=== PATIENT | male | born 1970 | race Caucasian/White ===

== ENCOUNTER 2018-05-11 15:27 | Inpatient (IN) ==
[2018-05-11] MEDS ORDERED: Vancomycin Inj 1 GM/200 ML PIGGYBACK IV.SIG ONE (19:14)
--- NOTE | 2018-05-11 19:23 | ED ---
HPI General Chief complaint: Wound/Laceration Stated complaint: Right Foot Toe Complaint Time Seen by Provider: 05/11/18 19:02 Source: patient Mode of arrival: ambulatory Limitations: no limitations History of Present Illness HPI narrative: This is a 47-year-old male with history of hypertension and diabetes presents emergency department for evaluation of a wound to his right second toe. Patient states 5 days ago he stubbed his toe. It was he had noticed that he broke the skin on the end of it and he put a Band-Aid and Neosporin on it. He reports when he took off the Band-Aid today he noticed a brown yellow drainage and a swollen red toe. 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 He denies any fever chills. He denies any nausea, vomiting, diarrhea. He has no other symptoms to report. Related Data Home Medications Medication Instructions Recorded Confirmed Actos 15 mg PO BID 05/11/18 05/11/18 gabapentin 800 mg PO BID 05/11/18 05/11/18 metformin 1,000 mg PO BID 05/11/18 05/11/18 Allergies Allergy/AdvReac Type Severity Reaction Status Date / Time penicillin G Allergy Intermediate Hives Verified 05/11/18 17:15 Sulfa (Sulfonamide Allergy Mild Hives Verified 05/11/18 17:15 Antibiotics) Review of Systems Except as stated in HPI: all other systems reviewed are negative [facility] Medical History Medical History CHF (congestive heart failure) (Acute) Diabetes (Acute) Peripheral neuropathy (Acute) Surgical History Surgical History No history of previous surgery (Acute) Social History Social History Substance History: No History of Abuse Second Hand Smoke Exposure: No Smoking Status: Never smoker How Often Do You Have a Drink Containing Alcohol: Never Recent Travel in [facility] within the Last 8 Weeks: No Recent Out of Country Travel within the Last 8 Weeks: No Immunization History Tetanus Immunization: >5 Years Hx Influenza Vaccine This Season: No Exam Narrative Exam Narrative: GENERAL: Well-nourished male patient, no acute distress SKIN: Focused skin assessment warm/dry. The right second toe is sausagelike and erythematous. There is a 1-1/2 cm in diameter wound on the distal tip with a brown purulent drainage. HEAD: Atraumatic. Normocephalic. EYES: Pupils equal and round. No scleral icterus. No injection or drainage. ENT: No nasal bleeding or discharge. Mucous membranes pink and moist. NECK: Trachea midline. No JVD. CARDIOVASCULAR: Regular rate and rhythm. No murmur appreciated. RESPIRATORY: No accessory muscle use. Clear to auscultation. Breath sounds equal bilaterally. GASTROINTESTINAL: Abdomen soft, non-tender, nondistended. Hepatic and splenic margins not palpable. MUSCULOSKELETAL: No obvious deformities. No clubbing. No cyanosis. No edema. NEUROLOGICAL: Awake and alert. No obvious cranial nerve deficits. Motor grossly within normal limits. Normal speech. PSYCHIATRIC: Appropriate mood and affect; insight and judgment normal. Course Initial Documented Vital Signs Temperature 99.7 F H 05/11/18 15:30 Pulse Rate 99 H 05/11/18 15:30 Respiratory Rate 18 05/11/18 15:30 Blood Pressure 201/91 H 05/11/18 15:30 Pulse Oximetry 99 05/11/18 15:30 Last Documented Vital Signs Temperature 99.7 F H 05/11/18 15:30 Pulse Rate 99 H 05/11/18 15:30 Respiratory Rate 18 05/11/18 15:30 Blood Pressure 201/91 H 05/11/18 15:30 Pulse Oximetry 99 05/11/18 15:30 Medical Decision Making RUBEN Attestation RUBEN supervised visit: Yes [facility] Narrative Medical decision making narrative: 47-year-old male presents emergency department for evaluation of an injury sustained to his right second toe that he believes has become infected. Patient appears well. He is hypertensive this is here in the emergency department. He has a slightly elevated heart rate in the grade temperature. The right second toe is sausagelike, erythematous, with a wound that is draining in the distal aspect. Cultures obtained. X-ray imaging shows soft tissue edema but no definite bone involvement. Sed rate is elevated at 51, so after discussion with my attending physician, we decided to move forward with MRI of the foot. Patient was also given IV vancomycin. MRI findings are concerning for possible early osteomyelitis. [facility] for IV antibiotics, podiatry consult. Plan is discussed with the patient. He is in agreement with this plan of care. Differential Diagnosis Differential Diagnosis: Infected wound versus cellulitis versus osteomyelitis versus foreign body Medical Records Medical records reviewed: Yes I reviewed the patient's medical records. Lab Data Lab results reviewed: Yes I reviewed the patient's lab results. Result diagrams: 05/11/18 18:55 05/11/18 18:55 Lab Results 05/11/18 05/11/18 05/11/18 Range/Units 18:55 18:55 18:55 WBC 6.4 (4.0-11.0) th/mm3 RBC 4.12 L (4.50-5.90) mil/mm3 Hgb 11.2 L (13.0-17.0) gm/dL Hct 33.7 L (39.0-51.0) % MCV 81.9 (80.0-100.0) fL MCH 27.2 (27.0-34.0) pg MCHC 33.2 (32.0-36.0) % RDW 13.6 (11.6-17.2) % Plt Count 256 (150-450) th/mm3 MPV 8.0 (7.0-11.0) fL Neut % (Auto) 72.5 H (16.0-70.0) % Lymph % (Auto) 15.3 (9.0-44.0) % [place] % (Auto) 10.5 H (0.0-8.0) % Eos % (Auto) 1.4 (0.0-4.0) % Baso % (Auto) 0.3 (0.0-2.0) % Neut # (Auto) 4.6 (1.8-7.7) th/mm3 Lymph # (Auto) 1.0 (1.0-4.8) th/mm3 [place] # (Auto) 0.7 (0.0-0.9) th/mm3 Eos # (Auto) 0.1 (0.0-0.4) th/mm3 Baso # (Auto) 0.0 (0.0-0.2) th/mm3 WBC Differential . Differential Comment Auto diff final ESR 51 H (0-15) mm/hr Sodium 144 (136-145) meq/L Potassium 4.9 (3.5-5.1) meq/L Chloride 111 H (98-107) meq/L Carbon Dioxide 21.5 (21.0-32.0) meq/L Anion Gap 12 (5-15) meq/L BUN 34 H (7-18) mg/dL Creatinine 2.09 H (0.60-1.30) mg/dL Estimated GFR 34 L (>89) mL/min Random Glucose 172 H (74-106) mg/dL Calcium 9.3 (8.5-10.1) mg/dL Imaging Data Radiologist's impression: ITS Impressions Toe X-Ray 05/11/18 19:14 CONCLUSION: No acute bony abnormality identified. Soft tissue swelling at the second toe. No radiopaque foreign body. Foot MRI 05/11/18 21:31 CONCLUSION: 1. Marrow edema distal phalanx of the second toe, possibly an early osteomyelitis although difficult to confirm marrow enhancement postcontrast. There is some subcutaneous edema in the forefoot. Discharge Plan Discharge Disposition Patient Disposition: 30 Still Patient Discharge Condition Condition: Stable Discharge Details Discharge Problem: Osteomyelitis of toe of right foot Physicians Team ED Provider: Obinna Velazquez ED Midlevel Provider: Aria Aguilar Primary Care Provider: UNKNOWN, Rxs /Orders / Referrals /Forms Prescriptions: No Action gabapentin 800 mg Tablet 800 mg PO BID RF: 0 metformin 1,000 mg Tablet 1,000 mg PO BID RF: 0 Actos 15 mg PO BID RF: 0 Status ED Status: Medically Cleared
--- NOTE | 2018-05-11 20:11 | XR ---
EXAM DATE: 05/11/2018 8:06 PM EDT AGE/SEX: 47 years / Male INDICATIONS: Ulcer with swelling and redness to 2nd toe, history of diabetes. CLINICAL DATA: This is the patient's initial encounter. Patient reports that signs and symptoms have been present for 3 days and indicates a pain score of 9/10. MEDICAL/SURGICAL HISTORY: Diabetes mellitus type II. None. COMPARISON: No prior exams available for comparison. FINDINGS: Bony structures are intact and in normal alignment. Joints are intact without dislocation or signifi cant arthropathy. Osseous density is normal. Soft tissues are swollen right second toe. No radiopaq ue foreign bodies seen. CONCLUSION: No acute bony abnormality identified. Soft tissue swelling at the second toe. No radiopaque foreign b alvino. Electronically signed by: Nazario Meredith MD 05/11/2018 8:09 PM EDT
[2018-05-11 20:40] LABS: Baso % (Auto) 0.3 % (0.0-2.0); Eos # (Auto) 0.1 th/mm3 (0.0-0.4); Eos % (Auto) 1.4 % (0.0-4.0); Hematocrit 33.7 % (39.0-51.0); Hemoglobin 11.2 gm/dL (13.0-17.0); Lymph % (Auto) 15.3 % (9.0-44.0); Mean Corpuscular HGB Conc 33.2 % (32.0-36.0); Mean Corpuscular Hemoglobin 27.2 pg (27.0-34.0); Mean Corpuscular Volume 81.9 fL (80.0-100.0); Mono # (Auto) 0.7 th/mm3 (0.0-0.9); Mono % (Auto) 10.5 % (0.0-8.0); Neut # (Auto) 4.6 th/mm3 (1.8-7.7); Neut % (Auto) 72.5 % (16.0-70.0); Platelet Count 256 th/mm3 (150-450); Red Blood Count 4.12 mil/mm3 (4.50-5.90); Red Cell Distribution Width 13.6 % (11.6-17.2); White Blood Count 6.4 th/mm3 (4.0-11.0)
[2018-05-11 21:05] LABS: Calcium 9.3 mg/dL (8.5-10.1); Carbon Dioxide 21.5 meq/L (21.0-32.0); Potassium 4.9 meq/L (3.5-5.1)
[2018-05-11] MEDS ORDERED: Vancomycin Inj 1,000 MG in Sodium Chlor 0.9% Inj 250 ML IV.SIG ONE (22:00)
[2018-05-11] MEDS ORDERED: Gadobenate Dimeglumine PF Inj 529 MG/ML 5 ML VIAL (for RAD MRI) IVCONTRAST ONE (22:12)
--- NOTE | 2018-05-11 22:44 | MR ---
EXAM DATE: 05/11/2018 10:31 PM EDT AGE/SEX: 47 years / Male INDICATIONS: Osteomyelitis. Right foot, second toe tip. CLINICAL DATA: This is the patient's initial encounter. Patient reports that signs and symptoms have been present for 1 week and indicates a pain score of 5/10. MEDICAL/SURGICAL HISTORY: Diabetes mellitus type II. . Finger sx. COMPARISON: No prior exams available for comparison. TECHNIQUE: Multiplanar, multisequence MRI examination was performed without contrast and after th e intravenous administration of 20 ml Multihance (gadobenate) single exam dose. FINDINGS: There is some marrow edema in the distal phalanx of the second toe, probably an early osteomyelitis a lthough postcontrast images do not reveal significant enhancement at this time. No other marrow signa l abnormalities are identified. No abnormal fluid collections. There are edematous changes in the for efoot especially on the dorsum of the foot. No other acute bony abnormality. CONCLUSION: 1. Marrow edema distal phalanx of the second toe, possibly an early osteomyelitis although difficult to confirm marrow enhancement postcontrast. There is some subcutaneous edema in the forefoot. Electronically signed by: Nazario Meredith MD 05/11/2018 10:43 PM EDT
[2018-05-12] MEDS ORDERED: Dextrose 50% in Water 50 ML Vial IV.PUSH PRN (00:58)
[2018-05-12] MEDS ORDERED: Temazepam 15 MG Capsule PO PRN (01:00)
[2018-05-12] MEDS ORDERED: Vancomycin Consult Pharmacy 1 EACH OTHER SCH (01:00)
[2018-05-12] MEDS ORDERED: Bisacodyl 10 MG Supp RECTAL PRN (01:00)
[2018-05-12] MEDS: Sod Chloride 0.9% Inj 1,000 ML IV.CONT SCH ×3 (01:52→22:35)
[2018-05-12] MEDS: Aztreonam Inj 2 GM in Sodium Chloride 0.9% Inj 100 ML IV.SIG SCH ×2 (02:33→14:47)
--- NOTE | 2018-05-12 03:09 | P.HPIM ---
History of Present Illness Primary Care Physician: UNKNOWN Chief Complaint: swelling History of Present Illness: 47-year-old male with a history of diabetes, diabetic peripheral neuropathy who presents to the ER with 3 week history of right second toe pain and swelling. Patient reports over the past 3 days however pus has been emanating from toe. Patient reports pain is sharp, constant, radiates throughout his whole foot. Otherwise says he is feeling all right. Denies any fevers, chest pain, shortness of breath, nausea, vomiting. He has not taken antibiotics for this yet. Patient denies any history of heart disease. Denies any chest pain with exertion. - Inpatient Certification If this patient has been admitted as an Inpatient: I certify that the inpatient services were ordered in accordance with Medicare regulations governing the order. This includes certification that hospital inpatient services are reasonable and necessary and in the case of services not specified as inpatient-only under 42 CFR 419.22(n), that they are appropriately provided as inpatient services in accordance to with the 2-midnight benchmark under 43 CFR 412.3(e) Estimated Total Length of Stay (Days): 3 Plans for Post Hospital Care: Home Review of Systems All other systems reviewed negative except as stated in HPI PMFSH - History History Provided By: Patient - Medical History Medical History: Medical History (Last Reviewed 05/12/18 @ 00:21 by ZIA Martinez) CHF (congestive heart failure) Diabetes Peripheral neuropathy - Surgical History Surgical History: Surgical History (Last Reviewed 05/12/18 @ 00:21 by ZIA Martinez) No history of previous surgery - Family History Family History: Family History (Last Updated 05/12/18 @ 03:05 by Malcom Garcia MD) Mother Heart disease - Tobacco History Second Hand Smoke Exposure: No Smoking Status: Never smoker - Alcohol History How Often Do You Have a Drink Containing Alcohol: Never - Substance Use History Substance History: No History of Abuse - Travel History Recent Travel in the [place] Within the Last 8 Weeks: No Recent Travel Out of the Country Within the Last 8 Weeks: No - Immunization History Tetanus Immunization: >5 Years Hx Influenza Vaccine This Season: No Medications and Allergies Active Medications: Active Medications Al Hydroxide/Mg Hydroxide (Milk Of Magnesia Liq) 30 ml PO Q12H PRN PRN Reason: Mild Constipation Bisacodyl (Dulcolax Supp) 10 mg RECTAL DAILY PRN PRN Reason: SEVERE CONSITIPATION Dextrose (D50w Vial) 50 ml IV.PUSH UNSCH PRN PRN Reason: PER HYPOGLYCEMIA PROTOCOL Gabapentin (Neurontin) 800 mg PO TID [facility] Glucagon (Glucagon Inj) 1 mg OTHER PRN PRN PRN Reason: for Hypoglycemia Protocol Aztreonam 2 gm/ Sodium (Chloride) 100 mls @ 200 mls/hr IV.SIG Q12H [facility] Last Admin: 05/12/18 02:33 Dose: 200 mls/hr Pharmacy Profile Note (Vancomycin Consult Pharmacy) 0 mls @ 0 mls/hr OTHER UNSCH [facility] Sodium Chloride (Ns Inj) 1,000 mls @ 100 mls/hr IV.CONT .Q10H [facility] Last Admin: 05/12/18 01:52 Dose: 100 mls/hr Insulin Aspart (Novolog Insulin Suppl Scale Inj) 0 unit SQ ACHS [facility]; Protocol Lactulose (Lactulose Liq) 30 ml PO DAILY PRN PRN Reason: SEVERE CONSITIPATION Sennosides (Senokot) 17.2 mg PO Q12H PRN PRN Reason: Moderate Constipation Temazepam (Restoril) 15 mg PO HS PRN PRN Reason: INSOMNIA Allergies Allergy/AdvReac Type Severity Reaction Status Date / Time penicillin G Allergy Intermediate Hives Verified 05/11/18 17:15 Sulfa (Sulfonamide Allergy Mild Hives Verified 05/11/18 17:15 Antibiotics) Home Medications Medication Instructions Recorded Confirmed Type Actos 15 mg PO BID 05/11/18 05/11/18 History gabapentin 800 mg PO BID 05/11/18 05/11/18 History metformin 1,000 mg PO BID 05/11/18 05/11/18 History Exam Vital signs: Vital Signs 05/11/18 15:30 Temperature 99.7 F H Pulse Rate 99 H Respiratory Rate 18 Blood Pressure 201/91 H Pulse Oximetry 99 Intake & Output 05/11/18 05/11/18 05/12/18 06:59 18:59 06:59 Intake Total 250 / 250 Balance 250 / 250 Weight 105.233 kg Intake: IV 250 / 250 Vancomycin Inj 1,000 MG In NS 250 / 250 Inj 250 ML @ 250 mls/hr IV.SIG ONCE ONE Rx#:[id number] Narrative: GENERAL: Patient sitting up in bed. Appears comfortable. Alert and oriented 3. SKIN: Warm and dry. HEAD: Atraumatic. Normocephalic. EYES: Pupils equal and round. No scleral icterus. No injection or drainage. ENT: No nasal bleeding or discharge. Mucous membranes pink and moist. NECK: Trachea midline. No JVD. CARDIOVASCULAR: Regular rate and rhythm. RESPIRATORY: No accessory muscle use. Clear to auscultation. Breath sounds equal bilaterally. GASTROINTESTINAL: Abdomen soft, non-tender, nondistended. Hepatic and splenic margins not palpable. MUSCULOSKELETAL: Extremities without clubbing, cyanosis, or edema. Patient has marketed swelling of right second toe, with erythema, pus under the nail. Very good pedal pulses bilaterally. NEUROLOGICAL: Awake and alert. No obvious cranial nerve deficits. Motor grossly within normal limits. Five out of 5 muscle strength in the arms and legs. Normal speech. PSYCHIATRIC: Appropriate mood and affect; insight and judgment normal. Results - Labs CBC & Chem 7: 05/11/18 18:55 05/11/18 18:55 Labs: Short CBC 05/11/18 Range/Units 18:55 WBC 6.4 (4.0-11.0) th/mm3 Hgb 11.2 L (13.0-17.0) gm/dL Hct 33.7 L (39.0-51.0) % Plt Count 256 (150-450) th/mm3 BMP 05/11/18 18:55 Sodium 144 Potassium 4.9 Chloride 111 H Carbon Dioxide 21.5 BUN 34 H Creatinine 2.09 H Calcium 9.3 - Imaging Impressions Toe X-Ray 05/11/18 19:14 CONCLUSION: No acute bony abnormality identified. Soft tissue swelling at the second toe. No radiopaque foreign body. Foot MRI 05/11/18 21:31 CONCLUSION: 1. Marrow edema distal phalanx of the second toe, possibly an early osteomyelitis although difficult to confirm marrow enhancement postcontrast. There is some subcutaneous edema in the forefoot. Caprini VTE Risk Assessment Caprini VTE Risk Assessment: No/Low Risk (score <= 1) Caprini Risk Assessment Model: Point Value = 1 Point Value = 2 Point Value = 3 Point Value = 5 Age 41-60 Minor surgery BMI > 25 kg/m2 Swollen legs Varicose veins or History of unexplained or recurrent spontaneous Oral contraceptives or hormone replacement Sepsis (< 1 month) Serious lung disease, including pneumonia (< 1 month) Abnormal pulmonary function Acute myocardial infarction Congestive heart failure (< 1 month) History of inflammatory bowel disease Medical patient at bed rest Age 61-74 Arthroscopic surgery Major open surgery (> 45 min) Laparoscopic surgery (> 45 min) Malignancy Confined to bed (> 72 hours) Immobilizing plaster cast Central venous access Age >= 75 History of VTE Family history of VTE Factor V Leiden Prothrombin [id number] Lupus anticoagulant Anticardiolipin antibodies Elevated serum homocysteine Heparin-induced thrombocytopenia Other congenital or acquired thrombophilia Stroke (< 1 month) Elective arthroplasty Hip, pelvis, or leg fracture Acute spinal cord injury (< 1 month) Prophylaxis Regimen: Total Risk Factor Score Risk Level Prophylaxis Regimen 0-1 Low Early ambulation 2 Moderate Order ONE of the following: *Sequential Compression Device (SCD) *Heparin 5000 units SQ BID 3-4 Higher Order ONE of the following medications: *Heparin 5000 units SQ TID *Enoxaparin/Lovenox 40 mg SQ daily (WT < 150 kg, CrCl > 30 mL/min) *Enoxaparin/Lovenox 30 mg SQ daily (WT < 150 kg, CrCl > 10-29 mL/min) *Enoxaparin/Lovenox 30 mg SQ BID (WT < 150 kg, CrCl > 30 mL/min) AND/OR *Sequential Compression Device (SCD) 5 or more Highest Order ONE of the following medications: *Heparin 5000 units SQ TID (Preferred with Epidurals) *Enoxaparin/Lovenox 40 mg SQ daily (WT < 150 kg, CrCl > 30 mL/min) *Enoxaparin/Lovenox 30 mg SQ daily (WT < 150 kg, CrCl > 10-29 mL/min) *Enoxaparin/Lovenox 30 mg SQ BID (WT < 150 kg, CrCl > 30 mL/min) AND *Sequential Compression Device (SCD) Assessment and Plan - Plan //Diabetic foot wound with osteomyelitis of right 2nd toe //Acute osteomyelitis of right first toe As seen on MRI Broad-spectrum antibiotics. Patient with penicillin allergy. Will use aztreonam and vancomycin. Consult to podiatry. Appreciate assistance //CKD stage IV. = Creatinine baseline 1.7 in 2016. Creatinine here 2.1. Uncertain recent baseline. Will continue on IV fluids and monitor. //Diabetes mellitus. N.p.o. for surgery. Insulin sliding scale. Hold home meds. //Chronic diabetic peripheral neuropathy. Continue gabapentin 800 mg 3 times daily Discussed Condition With: Patient, nurse, patient's aunt at bedside, ED physician
[2018-05-12] MEDS ORDERED: Gabapentin 400 MG Capsule PO SCH (09:00)
[2018-05-12] MEDS: Insulin NovoLOG Aspart Correctional Sugar Inj SQ SCH ×4 (09:56→22:34)
[2018-05-12] MEDS: Gabapentin 400 MG Capsule PO SCH ×3 (09:57→19:08)
--- NOTE | 2018-05-12 12:04 | P.PNIM ---
Subjective Interval history: Patient states pain is controlled well reports some mild sharp stabbing pain Physical Exam Vital signs: Vital Signs 05/11/18 15:30 05/12/18 01:01 05/12/18 03:22 Temperature 99.7 F H Pulse Rate 99 H 84 Respiratory Rate 18 17 16 Blood Pressure 201/91 H 144/67 H Pulse Oximetry 99 97 05/12/18 08:00 Temperature 98.3 F Pulse Rate 83 Respiratory Rate 19 Blood Pressure 153/81 H Pulse Oximetry 95 Intake & Output 05/11/18 05/12/18 05/12/18 18:59 06:59 18:59 Intake Total 350 / 350 Balance 350 / 350 Weight 105.233 kg Intake: IV 350 / 350 Azactam Inj 2 GM In NS Inj 100 100 / 100 ML @ 200 mls/hr IV.SIG Q12H [facility] Rx#:[id number] Vancomycin Inj 1,000 MG In NS 250 / 250 Inj 250 ML @ 250 mls/hr IV.SIG ONCE ONE Rx#:[id number] Narrative: GENERAL: This is a well-nourished, well-developed patient, in no apparent distress. CARDIOVASCULAR: Regular rate and rhythm without murmurs, gallops, or rubs. RESPIRATORY: Clear to auscultation. Breath sounds equal bilaterally. No wheezes , rales, or rhonchi. GASTROINTESTINAL: Abdomen soft, non-tender, nondistended. Normal active bowel sounds MUSCULOSKELETAL: Second toe swollen with excoriating erythematous changes no active discharge seen. NEURO: Alert & Oriented x4 to person, place, time, situation. Moves all ext x4 Results - Labs CBC & Chem 7: 05/11/18 18:55 05/11/18 18:55 Laboratory Results - last 24 hr 05/11/18 05/11/18 05/11/18 18:55 18:55 18:55 WBC 6.4 RBC 4.12 L Hgb 11.2 L Hct 33.7 L MCV 81.9 MCH 27.2 MCHC 33.2 RDW 13.6 Plt Count 256 MPV 8.0 Neut % (Auto) 72.5 H Lymph % (Auto) 15.3 [place] % (Auto) 10.5 H Eos % (Auto) 1.4 Baso % (Auto) 0.3 Neut # (Auto) 4.6 Lymph # (Auto) 1.0 [place] # (Auto) 0.7 Eos # (Auto) 0.1 Baso # (Auto) 0.0 WBC Differential . Differential Comment Auto diff final ESR 51 H Sodium 144 Potassium 4.9 Chloride 111 H Carbon Dioxide 21.5 Anion Gap 12 BUN 34 H Creatinine 2.09 H Estimated GFR 34 L POC Glucose Random Glucose 172 H Calcium 9.3 05/12/18 09:56 WBC RBC Hgb Hct MCV MCH MCHC RDW Plt Count MPV Neut % (Auto) Lymph % (Auto) [place] % (Auto) Eos % (Auto) Baso % (Auto) Neut # (Auto) Lymph # (Auto) [place] # (Auto) Eos # (Auto) Baso # (Auto) WBC Differential Differential Comment ESR Sodium Potassium Chloride Carbon Dioxide Anion Gap BUN Creatinine Estimated GFR POC Glucose 122 H Random Glucose Calcium Microbiology 05/11/18 20:20 Abscess - Foot Gram Stain - Final - Imaging Impressions Toe X-Ray 05/11/18 19:14 CONCLUSION: No acute bony abnormality identified. Soft tissue swelling at the second toe. No radiopaque foreign body. Foot MRI 05/11/18 21:31 CONCLUSION: 1. Marrow edema distal phalanx of the second toe, possibly an early osteomyelitis although difficult to confirm marrow enhancement postcontrast. There is some subcutaneous edema in the forefoot. Assessment and Plan - Plan 1. Infected diabetic foot wound with osteomyelitis of right 2nd toe //Acute osteomyelitis of right second toe As seen on MRI Broad-spectrum antibiotics. Patient with penicillin allergy. Will use aztreonam and vancomycin. Consult to podiatry. Appreciate assistance Due to osteomyelitis will consult infectious disease for further evaluation. 2. Acute kidney injury superimposed on CKD stage IV. = Creatinine baseline 1.7 in 2016. Creatinine here 2.1. Uncertain recent baseline. Will continue on IV fluids and monitor. 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 N.p.o. for surgery. Insulin sliding scale. Hold home meds. Not a good candidate for metformin due to chronic kidney disease. 4. Chronic diabetic peripheral neuropathy. Continue gabapentin 800 mg 3 times daily, gabapentin dosing needs to be decreased due to chronic kidney disease. 5. DVT prophylaxisNo mechanical or pharmaceutical VTE prophalaxis administered due to patient's low risk assessment of VTE. Encouraged ambulation.
[2018-05-12] MEDS ORDERED: Naloxone Inj 0.4 MG/ML Vial IV.PUSH PRN (12:06)
--- NOTE | 2018-05-12 16:12 | P.CONID ---
History of Present Illness Service: Infectious disease Consult date: 05/12/18 Requesting Physician: [place] Reason for Consult: Evaluate patient with osteomyelitis of the right second toe Primary Care Provider: UNKNOWN Chief Complaint: swelling History of Present Illness: Patient seen and examined. Records reviewed. Patient is a 47-year-old male, with diabetes, presented to the hospital complaining of pain redness and swelling on his right second toe. Patient stated that he had noticed a callus on his right second toe for the last several months. About 2-3 weeks ago he had part of the callus, and since then he has had some open wound on that second toe. He was doing his own wound care and according to the patient it looks like it might be healing. However on May 08 he noted some purulent drainage coming out of that wound. He was doing his own care for the wound, and the following day when he woke up he noticed that his second toe was red and swollen. It progressively worsened so he presented to the hospital for further evaluation and treatment. He denies any fever chills or sweats. He has not had any respiratory, GI or any urinary complaints. Since admission his temperature has been low-grade. His sed rate is 51. MRI of the foot is showing suggestion of osteomyelitis of the distal phalanx. Infectious disease consultation has been requested to evaluate the patient. Review of Systems Constitutional: Denies chills, Denies fever(s), Denies night sweats Eyes: Denies discharge, Denies pain Ears, Nose, Mouth, and Throat: Denies facial pain, Denies hoarseness, Denies mouth pain, Denies neck pain, Denies sore throat Cardiovascular: Denies chest pain, Denies shortness of breath Gastrointestinal: Denies abdominal pain, Denies loose stools, Denies nausea, Denies pain with swallowing, Denies vomiting Genitourinary: Denies painful urination, Denies urinary frequency, Denies urinary hesitancy Musculoskeletal: Reports joint pain, Reports joint swelling, Reports tingling Skin/Breast: Denies rash Neurologic: Reports tingling/numbness/burning sensations, Denies localized weakness PMFSH - History History Provided By: Patient - Medical History Medical History: Medical History (Last Reviewed 05/12/18 @ 16:07 by Angela Burgess MD) CHF (congestive heart failure) (Acute) Diabetes Peripheral neuropathy - Surgical History Surgical History: Surgical History (Last Reviewed 05/12/18 @ 16:07 by Angela Burgess MD) No history of previous surgery - Family History Family History: Family History (Last Reviewed 05/12/18 @ 16:07 by Angela Burgess MD) Mother Heart disease - Tobacco History Second Hand Smoke Exposure: No Smoking Status: Never smoker - Alcohol History How Often Do You Have a Drink Containing Alcohol: Monthly or less - Substance Use History Substance History: No History of Abuse - Travel History Recent Travel in the [place] Within the Last 8 Weeks: No Recent Travel Out of the Country Within the Last 8 Weeks: No - Immunization History Tetanus Immunization: >5 Years Hx Influenza Vaccine This Season: No Medications and Allergies Active Medications: Active Medications Acetaminophen (Tylenol) 650 mg PO Q6HR PRN PRN Reason: PAIN SCALE 1 TO 2 Hydrocodone Bitart/Acetaminophen ([place] 5/325) 1 tab PO Q4H PRN PRN Reason: Pain Scale 3 To 10 Al Hydroxide/Mg Hydroxide (Milk Of [place]herbie Liq) 30 ml PO Q12H PRN PRN Reason: Mild Constipation Bisacodyl (Dulcolax Supp) 10 mg RECTAL DAILY PRN PRN Reason: SEVERE CONSITIPATION Dextrose (D50w Vial) 50 ml IV.PUSH UNSCH PRN PRN Reason: PER HYPOGLYCEMIA PROTOCOL Gabapentin (Neurontin) 800 mg PO TID [facility] Last Admin: 05/12/18 14:47 Dose: 800 mg Glucagon (Glucagon Inj) 1 mg OTHER PRN PRN PRN Reason: for Hypoglycemia Protocol Aztreonam 2 gm/ Sodium (Chloride) 100 mls @ 200 mls/hr IV.SIG Q12H [facility] Last Admin: 05/12/18 14:47 Dose: 200 mls/hr Pharmacy Profile Note (Vancomycin Consult Pharmacy) 0 mls @ 0 mls/hr OTHER UNSCH [facility] Sodium Chloride (Ns Inj) 1,000 mls @ 100 mls/hr IV.CONT .Q10H [facility] Last Admin: 05/12/18 14:41 Dose: 100 mls/hr Vancomycin HCl 1,500 mg/ (Sodium Chloride) 515 mls @ 250 mls/hr IV.SIG Q24H [facility] Insulin Aspart (Novolog Insulin Suppl Scale Inj) 0 unit SQ ACHS [facility]; Protocol Last Admin: 05/12/18 14:59 Dose: Not Given Lactulose (Lactulose Liq) 30 ml PO DAILY PRN PRN Reason: SEVERE CONSITIPATION Miscellaneous Information ([facility] Ordered Lab Info) 1 each OTHER ONCE ONE Stop: 05/14/18 15:46 Naloxone HCl (Narcan Inj) 0.4 mg IV.PUSH UNSCH PRN PRN Reason: SEE LABEL COMMENTS Sennosides (Senokot) 17.2 mg PO Q12H PRN PRN Reason: Moderate Constipation Temazepam (Restoril) 15 mg PO HS PRN PRN Reason: INSOMNIA Allergies Allergy/AdvReac Type Severity Reaction Status Date / Time penicillin G Allergy Intermediate Hives Verified 05/11/18 17:15 Sulfa (Sulfonamide Allergy Mild Hives Verified 05/11/18 17:15 Antibiotics) Home Medications Medication Instructions Recorded Confirmed Type Actos 15 mg PO BID 05/11/18 05/11/18 History gabapentin 800 mg PO QID 05/11/18 05/12/18 History metformin 1,000 mg PO BID 05/11/18 05/11/18 History Exam Vital signs: Vital Signs 05/12/18 01:01 05/12/18 03:22 05/12/18 08:00 Temperature 98.3 F Pulse Rate 84 83 Respiratory Rate 17 16 19 Blood Pressure 144/67 H 153/81 H Pulse Oximetry 97 95 05/12/18 12:00 Temperature 97.4 F L Pulse Rate 79 Respiratory Rate 18 Blood Pressure 143/85 H Pulse Oximetry 96 Intake & Output 05/11/18 05/12/18 05/12/18 18:59 06:59 18:59 Intake Total 350 / 350 1000 / 1000 Balance 350 / 350 1000 / 1000 Weight 105.233 kg Intake: IV 350 / 350 1000 / 1000 NS Inj 1,000 ML @ 100 mls/hr IV 1000 / 1000 .CONT .Q10H [facility] Rx#:[id number] Azactam Inj 2 GM In NS Inj 100 100 / 100 ML @ 200 mls/hr IV.SIG Q12H [facility] Rx#:[id number] Vancomycin Inj 1,000 MG In NS 250 / 250 Inj 250 ML @ 250 mls/hr IV.SIG ONCE ONE Rx#:[id number] Narrative: Physicaql Examination GENERAL: Patient is a well-nourished, well-developed male, awake and alert, not in respiratory distress. SKIN: Cool and dry. No generalized rash, no ecchymoses and no evidence of embolic lesions. HEAD: Atraumatic. Normocephalic. No temporal wasting, or tenderness. EYES: [place] conjunctiva. No petechia or hemorrhage. Pupils equal, round and reactive to light. Extraocular movements full and intact. No scleral icterus. No injection or drainage. EARS, NOSE AND THROAT: Nose without bleeding or purulent nasal discharge. No sinus tenderness. Mucous membranes pink and moist. No oral lesions noted. No exudate. No oral thrush. NECK: Trachea midline. Supple and not tender, no meningeal signs CARDIOVASCULAR: Regular rate and rhythm. No murmurs, rubs or gallops heard RESPIRATORY: Clear to auscultation. Breath sounds equal bilaterally. No rales , wheezing or rhonchi ABDOMEN: Soft, non-tender, nondistended. Bowel sounds present and normoactive. No guarding. No rebound. No organomegaly. EXTREMITIES: No clubbing, cyanosis, or edema. R foot - second toe is red and swollen and at the tip, there is callus noted and an open wound, small with some purulent drainage. No redness noted on dorsum of his R foot, no lymphangitis seen. No calf tenderness. Good pulses both feet NEUROLOGICAL: Awake and alert. Cranial nerves grossly intact. Motor grossly within normal limits. PSYCHIATRIC: Seems to have depressed affect, calm and cooperative. LINE: No evidence of infection Results - Labs CBC & Chem 7: 05/11/18 18:55 05/11/18 18:55 Labs: Laboratory Results - last 24 hr 05/11/1818 05/11/18 18:55 18:55 18:55 WBC 6.4 RBC 4.12 L Hgb 11.2 L Hct 33.7 L MCV 81.9 MCH 27.2 MCHC 33.2 RDW 13.6 Plt Count 256 MPV 8.0 Neut % (Auto) 72.5 H Lymph % (Auto) 15.3 Miller % (Auto) 10.5 H Eos % (Auto) 1.4 Baso % (Auto) 0.3 Neut # (Auto) 4.6 Lymph # (Auto) 1.0 Miller # (Auto) 0.7 Eos # (Auto) 0.1 Baso # (Auto) 0.0 WBC Differential . Differential Comment Auto diff final ESR 51 H Sodium 144 Potassium 4.9 Chloride 111 H Carbon Dioxide 21.5 Anion Gap 12 BUN 34 H Creatinine 2.09 H Estimated GFR 34 L POC Glucose Random Glucose 172 H Calcium 9.3 05/12/18 05/12/18 09:56 14:48 WBC RBC Hgb Hct MCV MCH MCHC RDW Plt Count MPV Neut % (Auto) Lymph % (Auto) Miller % (Auto) Eos % (Auto) Baso % (Auto) Neut # (Auto) Lymph # (Auto) Miller # (Auto) Eos # (Auto) Baso # (Auto) WBC Differential Differential Comment ESR Sodium Potassium Chloride Carbon Dioxide Anion Gap BUN Creatinine Estimated GFR POC Glucose 122 H 115 H Random Glucose Calcium - Imaging Toe X-Ray 05/11/18 19:14 CONCLUSION: No acute bony abnormality identified. Soft tissue swelling at the second toe. No radiopaque foreign body. Foot MRI 05/11/18 21:31 CONCLUSION: 1. Marrow edema distal phalanx of the second toe, possibly an early osteomyelitis although difficult to confirm marrow enhancement postcontrast. There is some subcutaneous edema in the forefoot. Assessment and Plan - Plan Impression Cellulitis R second toe with wound, possibly with ostemyelitis DM Renal insufficiency, ?baseline, possibly due to infection Possible sepsis due to foot infection Recommendation Follow C/S Podiatry to evaluate Continue Azactam Continue Vanco - will dose depending on levels Follow creatinine Monitor progress I will determine course of Abx depending on work-up results and intervention done by podiatry I will follow along with you Thank you for this consultation
[2018-05-12] MEDS: Vancomycin Inj 1,500 MG in Sodium Chlor 0.9% Inj 500 ML IV.SIG SCH (17:53)
--- NOTE | 2018-05-12 18:29 | P.CONPOD ---
History of Present Illness Service: Foot and ankle surgery/podiatry Consult date: 05/12/18 Reason for Consult: Right second toe infection Primary Care Provider: UNKNOWN Chief Complaint: swelling History of Present Illness: Podiatry consulted for this 47-year-old male with history of diabetes, diabetic peripheral neuropathy who presented to the ED with a 3 week history of right second toe pain and swelling. Patient states over the past 72 hours there has been pus from the right second toe. He states he poured hydrogen peroxide on it and ever since then it has become more painful, edematous, and erythematous. Denies any fevers nausea vomiting chills. Review of Systems All other systems reviewed negative except as stated in HPI Constitutional: Denies chills, Denies fever(s), Denies headache(s), Denies night sweats Eyes: Denies blind spots, Denies blurry vision Ears, Nose, Mouth, and Throat: Denies abnormal hearing Cardiovascular: Denies chest pain Respiratory: Denies chest congestion, Denies cough, Denies shortness of breath Gastrointestinal: Denies abdominal pain Musculoskeletal: Denies joint pain, Denies muscle cramps, Denies muscle weakness PMFSH - History History Provided By: Patient - Medical History Medical History: Medical History (Last Reviewed 05/12/18 @ 18:23 by Lakisha Mcconnell DPM) CHF (congestive heart failure) (Acute) Diabetes Peripheral neuropathy - Surgical History Surgical History: Surgical History (Last Reviewed 05/12/18 @ 18:23 by Lakisha Mcconnell DPM) No history of previous surgery - Family History Family History: Family History (Last Reviewed 05/12/18 @ 18:23 by Lakisha Mcconnell DPM) Mother Heart disease - Tobacco History Second Hand Smoke Exposure: No Smoking Status: Never smoker - Alcohol History How Often Do You Have a Drink Containing Alcohol: Monthly or less - Substance Use History Substance History: No History of Abuse - Travel History Recent Travel in the [place] Within the Last 8 Weeks: No Recent Travel Out of the Country Within the Last 8 Weeks: No - Immunization History Tetanus Immunization: >5 Years Hx Influenza Vaccine This Season: No Medications and Allergies Active Medications: Active Medications Acetaminophen (Tylenol) 650 mg PO Q6HR PRN PRN Reason: PAIN SCALE 1 TO 2 Hydrocodone Bitart/Acetaminophen ([place] 5/325) 1 tab PO Q4H PRN PRN Reason: Pain Scale 3 To 10 Al Hydroxide/Mg Hydroxide (Milk Of Magnesia Liq) 30 ml PO Q12H PRN PRN Reason: Mild Constipation Bisacodyl (Dulcolax Supp) 10 mg RECTAL DAILY PRN PRN Reason: SEVERE CONSITIPATION Dextrose (D50w Vial) 50 ml IV.PUSH UNSCH PRN PRN Reason: PER HYPOGLYCEMIA PROTOCOL Gabapentin (Neurontin) 800 mg PO TID [facility] Last Admin: 05/12/18 14:47 Dose: 800 mg Glucagon (Glucagon Inj) 1 mg OTHER PRN PRN PRN Reason: for Hypoglycemia Protocol Aztreonam 2 gm/ Sodium (Chloride) 100 mls @ 200 mls/hr IV.SIG Q12H [facility] Last Admin: 05/12/18 14:47 Dose: 200 mls/hr Pharmacy Profile Note (Vancomycin Consult Pharmacy) 0 mls @ 0 mls/hr OTHER UNSCH [facility] Sodium Chloride (Ns Inj) 1,000 mls @ 100 mls/hr IV.CONT .Q10H [facility] Last Admin: 05/12/18 14:41 Dose: 100 mls/hr Vancomycin HCl 1,500 mg/ (Sodium Chloride) 515 mls @ 250 mls/hr IV.SIG Q24H [facility] Last Admin: 05/12/18 17:53 Dose: 250 mls/hr Insulin Aspart (Novolog Insulin Suppl Scale Inj) 0 unit SQ ACHS [facility]; Protocol Last Admin: 05/12/18 17:56 Dose: Not Given Lactulose (Lactulose Liq) 30 ml PO DAILY PRN PRN Reason: SEVERE CONSITIPATION Miscellaneous Information ([facility] Ordered Lab Info) 1 each OTHER ONCE ONE Stop: 05/14/18 15:46 Naloxone HCl (Narcan Inj) 0.4 mg IV.PUSH UNSCH PRN PRN Reason: SEE LABEL COMMENTS Sennosides (Senokot) 17.2 mg PO Q12H PRN PRN Reason: Moderate Constipation Temazepam (Restoril) 15 mg PO HS PRN PRN Reason: INSOMNIA Allergies Allergy/AdvReac Type Severity Reaction Status Date / Time penicillin G Allergy Intermediate Hives Verified 05/11/18 17:15 Sulfa (Sulfonamide Allergy Mild Hives Verified 05/11/18 17:15 Antibiotics) Home Medications Medication Instructions Recorded Confirmed Type Actos 15 mg PO BID 05/11/18 05/11/18 History gabapentin 800 mg PO QID 05/11/18 05/12/18 History metformin 1,000 mg PO BID 05/11/18 05/11/18 History Physical Exam Vital signs: Vital Signs 05/12/18 01:01 05/12/18 03:22 05/12/18 08:00 Temperature 98.3 F Pulse Rate 84 83 Respiratory Rate 17 16 19 Blood Pressure 144/67 H 153/81 H Pulse Oximetry 97 95 05/12/18 12:00 05/12/18 16:00 Temperature 97.4 F L 98.4 F Pulse Rate 79 80 Respiratory Rate 18 19 Blood Pressure 143/85 H 170/83 H Pulse Oximetry 96 97 Intake & Output 05/11/18 05/12/18 05/12/18 18:59 06:59 18:59 Intake Total 350 / 350 1999 / 1999 Balance 350 / 350 1999 / 1999 Weight 105.233 kg Intake: IV 350 / 350 1000 / 1000 NS Inj 1,000 ML @ 100 mls/hr IV 1000 / 1000 .CONT .Q10H [facility] Rx#:[id number] Azactam Inj 2 GM In NS Inj 100 100 / 100 ML @ 200 mls/hr IV.SIG Q12H [facility] Rx#:[id number] Vancomycin Inj 1,000 MG In NS 250 / 250 Inj 250 ML @ 250 mls/hr IV.SIG ONCE ONE Rx#:[id number] Other 1000 / 1000 Narrative: GENERAL: This is a well-nourished, well-developed patient, in no apparent distress. SKIN: Ulceration noted to distal tip of right second digit HEAD: Atraumatic. EYES: Pupils equal round and reactive. ENT: Airway patent. NECK: Trachea midline. RESPIRATORY: Nonlabored breathing. MUSCULOSKELETAL:. Negative Homans sign bilaterally. NEUROLOGICAL: Awake and alert. Normal speech. Lower extremity physical exam: Vascular: Dorsalis pedis 2/4, posterior tibial 2/4. Capillary refill time within normal limits to digits X5 bilateral foot. Edema present right second digit Neuro: Gross sensation intact to bilateral lower extremity. Pinpoint sensation decreased. No hyperalgesia noted to bilateral lower extremity Dermatology: Increased erythema, edema and temperature noted to right second digit with distal tip ulceration with purulent drainage. Hyperkeratotic borders noted to ulceration site. Noted probe to capsule. Acute signs of infection present Musculoskeletal: Tender to palpation to right second digit. Results - Labs CBC & Chem 7: 05/11/18 18:55 05/11/18 18:55 Laboratory Results - last 24 hr 05/11/18 05/11/18 05/11/18 18:55 18:55 18:55 WBC 6.4 RBC 4.12 L Hgb 11.2 L Hct 33.7 L MCV 81.9 MCH 27.2 MCHC 33.2 RDW 13.6 Plt Count 256 MPV 8.0 Neut % (Auto) 72.5 H Lymph % (Auto) 15.3 [place] % (Auto) 10.5 H Eos % (Auto) 1.4 Baso % (Auto) 0.3 Neut # (Auto) 4.6 Lymph # (Auto) 1.0 [place] # (Auto) 0.7 Eos # (Auto) 0.1 Baso # (Auto) 0.0 WBC Differential . Differential Comment Auto diff final ESR 51 H Sodium 144 Potassium 4.9 Chloride 111 H Carbon Dioxide 21.5 Anion Gap 12 BUN 34 H Creatinine 2.09 H Estimated GFR 34 L POC Glucose Random Glucose 172 H Calcium 9.3 05/12/18 05/12/18 05/12/18 09:56 14:48 17:13 WBC RBC Hgb Hct MCV MCH MCHC RDW Plt Count MPV Neut % (Auto) Lymph % (Auto) [place] % (Auto) Eos % (Auto) Baso % (Auto) Neut # (Auto) Lymph # (Auto) [place] # (Auto) Eos # (Auto) Baso # (Auto) WBC Differential Differential Comment ESR Sodium Potassium Chloride Carbon Dioxide Anion Gap BUN Creatinine Estimated GFR POC Glucose 122 H 115 H 113 H Random Glucose Calcium Microbiology 05/11/18 20:20 Abscess - Foot Gram Stain - Final 05/11/18 20:20 Abscess - Foot Wound Culture - Preliminary - Imaging Impressions Toe X-Ray 05/11/18 19:14 CONCLUSION: No acute bony abnormality identified. Soft tissue swelling at the second toe. No radiopaque foreign body. Foot MRI 05/11/18 21:31 CONCLUSION: 1. Marrow edema distal phalanx of the second toe, possibly an early osteomyelitis although difficult to confirm marrow enhancement postcontrast. There is some subcutaneous edema in the forefoot. Assessment and Plan - Plan 47-year-old male with right second digit infection Patient examined evaluated with all questions answered Discussed x-ray and MRI results with patient Recommend three-phase bone scan for more definitive study to rule out osteomyelitis Right second digit irrigated with normal saline and packed with iodoform packing ; Xeroform, 4 x 4's and Ashly applied Wound culture taken Would recommend continued IV antibiotics Will reevaluate edema and erythema to right second digit
[2018-05-12] MEDS: Acetaminophen 325 MG Tablet PO PRN (20:26)
[2018-05-13] MEDS: Sod Chloride 0.9% Inj 1,000 ML IV.CONT SCH ×3 (01:36→18:05)
[2018-05-13] MEDS: Aztreonam Inj 2 GM in Sodium Chloride 0.9% Inj 100 ML IV.SIG SCH ×2 (01:37→15:27)
[2018-05-13] MEDS: Gabapentin 400 MG Capsule PO SCH ×3 (09:09→17:52)
[2018-05-13] MEDS: Insulin NovoLOG Aspart Correctional Sugar Inj SQ SCH ×4 (09:10→23:24)
[2018-05-13] MEDS: Acetaminophen 325 MG Tablet PO PRN (09:11)
[2018-05-13 09:34] LABS: Baso % (Auto) 0.5 % (0.0-2.0); Eos # (Auto) 0.2 th/mm3 (0.0-0.4); Eos % (Auto) 3.2 % (0.0-4.0); Hematocrit 30.1 % (39.0-51.0); Hemoglobin 10.3 gm/dL (13.0-17.0); Lymph # (Auto) 1.1 th/mm3 (1.0-4.8); Lymph % (Auto) 18.6 % (9.0-44.0); Mean Corpuscular HGB Conc 34.2 % (32.0-36.0); Mean Corpuscular Hemoglobin 27.6 pg (27.0-34.0); Mean Corpuscular Volume 80.8 fL (80.0-100.0); Mean Platelet Volume 7.5 fL (7.0-11.0); Mono # (Auto) 0.5 th/mm3 (0.0-0.9); Mono % (Auto) 8.3 % (0.0-8.0); Neut # (Auto) 4.3 th/mm3 (1.8-7.7); Neut % (Auto) 69.4 % (16.0-70.0); Platelet Count 262 th/mm3 (150-450); Red Blood Count 3.73 mil/mm3 (4.50-5.90); Red Cell Distribution Width 13.5 % (11.6-17.2); White Blood Count 6.2 th/mm3 (4.0-11.0)
[2018-05-13 10:00] LABS: Albumin 2.8 g/dL (3.4-5.0); Anion Gap 9 meq/L (5-15); Aspartate Aminotransferase 15 U/L (15-37); Blood Urea Nitrogen 27 mg/dL (7-18); Calcium 8.8 mg/dL (8.5-10.1); Carbon Dioxide 22.5 meq/L (21.0-32.0); Chloride 114 meq/L (98-107); Glomerular Filtration Rate 47 mL/min (>89); Glucose,Random 116 mg/dL (74-106); Potassium 4.5 meq/L (3.5-5.1); Sodium 145 meq/L (136-145)
[2018-05-13 10:04] LABS: Alanine Aminotransferase 16 U/L (12-78); Alkaline Phosphatase 42 U/L (45-117); Total Protein 6.9 g/dL (6.4-8.2)
--- NOTE | 2018-05-13 10:21 | P.PNID ---
Subjective Remarks: Patient is a 47-year-old male, with diabetes, presented to the hospital complaining of pain redness and swelling on his right second toe. Patient stated that he had noticed a callus on his right second toe for the last several months. About 2-3 weeks ago he had part of the callus, and since then he has had some open wound on that second toe. He was doing his own wound care and according to the patient it looks like it might be healing. However on May 08 he noted some purulent drainage coming out of that wound. He was doing his own care for the wound, and the following day when he woke up he noticed that his second toe was red and swollen. It progressively worsened so he presented to the hospital for further evaluation and treatment. He denies any fever chills or sweats. He has not had any respiratory, GI or any urinary complaints. Since admission his temperature has been low-grade. His sed rate is 51. MRI of the foot is showing suggestion of osteomyelitis of the distal phalanx. Infectious disease consultation has been requested to evaluate the patient. Notes reviewed Afebrile Wound C/S pending Podiatry notes reviewed Bone scan ordered Antibiotics: Azactam Vancomycin Lines: PIV no evidence of infection Past Medical History: CHF (congestive heart failure) (Acute) Diabetes Peripheral neuropathy Allergies/Adverse Reactions: Allergies penicillin G Allergy (Intermediate, Verified 05/11/18 17:15) Hives Sulfa (Sulfonamide Antibiotics) Allergy (Mild, Verified 05/11/18 17:15) Hives Objective Vital Signs 05/12/18 12:00 05/12/18 16:00 05/12/18 20:00 Temperature 97.4 F L 98.4 F 98.6 F Pulse Rate 79 80 80 Respiratory Rate 18 19 17 Blood Pressure 143/85 H 170/83 H 192/86 H Pulse Oximetry 96 97 95 05/12/18 20:33 05/13/18 00:00 05/13/18 08:00 Temperature 98.5 F 98.4 F Pulse Rate 87 72 Respiratory Rate 17 17 Blood Pressure 190/90 H 159/87 H 145/79 H Pulse Oximetry 96 96 Intake & Output 05/12/18 05/13/18 05/13/18 18:59 06:59 18:59 Intake Total 2099 / 2094 1000 / 1000 Balance 2100 / 2100 2095 / 2095 1000 / 1000 Weight 104.9 kg Intake: IV 1100 / 1100 1615 / 1615 1000 / 1000 NS Inj 1,000 ML @ 100 mls/hr IV 1000 / 1000 1000 / 1000 1000 / 1000 .CONT .Q10H [facility] Rx#:[id number] Azactam Inj 2 GM In NS Inj 100 100 / 100 100 / 100 ML @ 200 mls/hr IV.SIG Q12H [facility] Rx#:[id number] Vancomycin Inj 1,500 MG In NS 515 / 515 Inj 500 ML @ 250 mls/hr IV.SIG Q24H [facility] Rx#:[id number] Oral 480 / 480 Other 1000 / 1000 Other: # Voids 1 4 # Bowel Movements 0 05/12/18 21:57 Wound - Foot Gram Stain - Final 05/12/18 21:57 Wound - Foot Wound Culture - Pending 05/11/18 20:20 Abscess - Foot Gram Stain - Final 05/11/18 20:20 Abscess - Foot Wound Culture - Preliminary Lab - Hematology Results 05/11/18 05/11/18 05/13/18 18:55 18:55 08:29 WBC 6.4 6.2 RBC 4.12 L 3.73 L Hgb 11.2 L 10.3 L Hct 33.7 L 30.1 L MCV 81.9 80.8 MCH 27.2 27.6 MCHC 33.2 34.2 RDW 13.6 13.5 Plt Count 256 262 MPV 8.0 7.5 Neut % (Auto) 72.5 H 69.4 Lymph % (Auto) 15.3 18.6 [place] % (Auto) 10.5 H 8.3 H Eos % (Auto) 1.4 3.2 Baso % (Auto) 0.3 0.5 Neut # (Auto) 4.6 4.3 Lymph # (Auto) 1.0 1.1 [place] # (Auto) 0.7 0.5 Eos # (Auto) 0.1 0.2 Baso # (Auto) 0.0 0.0 WBC Differential . . Differential Comment Auto diff final Auto diff final ESR 51 H Lab - Chemistry Results 05/11/18 05/12/18 05/12/18 18:55 09:56 14:48 Sodium 144 Potassium 4.9 Chloride 111 H Carbon Dioxide 21.5 Anion Gap 12 BUN 34 H Creatinine 2.09 H Estimated GFR 34 L POC Glucose 122 H 115 H Random Glucose 172 H Calcium 9.3 Total Bilirubin AST ALT Alkaline Phosphatase Total Protein Albumin 05/12/18 05/12/18 05/13/18 17:13 20:23 08:04 Sodium Potassium Chloride Carbon Dioxide Anion Gap BUN Creatinine Estimated GFR POC Glucose 113 H 101 141 H Random Glucose Calcium Total Bilirubin AST ALT Alkaline Phosphatase Total Protein Albumin 05/13/18 08:29 Sodium 145 Potassium 4.5 Chloride 114 H Carbon Dioxide 22.5 Anion Gap 9 BUN 27 H Creatinine 1.60 H Estimated GFR 47 L POC Glucose Random Glucose 116 H Calcium 8.8 Total Bilirubin 0.2 AST 15 ALT 16 Alkaline Phosphatase 42 L Total Protein 6.9 Albumin 2.8 L Imaging: ITS Impressions Toe X-Ray 05/11/18 19:14 CONCLUSION: No acute bony abnormality identified. Soft tissue swelling at the second toe. No radiopaque foreign body. Foot MRI 05/11/18 21:31 CONCLUSION: 1. Marrow edema distal phalanx of the second toe, possibly an early osteomyelitis although difficult to confirm marrow enhancement postcontrast. There is some subcutaneous edema in the forefoot. Physical Exam: Physical Examination GENERAL: awake and alert, not in respiratory distress. SKIN: Cool and dry. No generalized rash, no ecchymoses and no evidence of embolic lesions. HEAD: Atraumatic. Normocephalic. No temporal wasting, or tenderness. EYES: [place] conjunctiva. No petechia or hemorrhage. Pupils equal, round and reactive to light. Extraocular movements full and intact. No scleral icterus. No injection or drainage. EARS, NOSE AND THROAT: Nose without bleeding or purulent nasal discharge. No sinus tenderness. Mucous membranes pink and moist. No oral lesions noted. No exudate. No oral thrush. NECK: Trachea midline. Supple and not tender, no meningeal signs CARDIOVASCULAR: Regular rate and rhythm. No murmurs, rubs or gallops heard RESPIRATORY: Clear to auscultation. Breath sounds equal bilaterally. No rales , wheezing or rhonchi ABDOMEN: Soft, non-tender, nondistended. Bowel sounds present and normoactive. No guarding. No rebound. No organomegaly. EXTREMITIES: No clubbing, cyanosis, or edema. R foot - second toe is red and swollen and at the tip, there is callus noted and an open wound, small with some purulent drainage. No redness noted on dorsum of his R foot, no lymphangitis seen. No calf tenderness. Good pulses both feet NEUROLOGICAL: Awake and alert. Cranial nerves grossly intact. Motor grossly within normal limits. PSYCHIATRIC: Seems to have depressed affect, calm and cooperative. LINE: No evidence of infection Assessment and Plan - Plan Impression Cellulitis R second toe with wound, possibly with osteomyelitis DM Renal insufficiency, ?baseline, possibly due to infection - improving, likely due to infection Possible sepsis due to foot infection Recommendation Follow C/S Continue Azactam Continue Vanco - will dose depending on levels Follow creatinine Bone scan has been ordered Monitor progress Will determine course of Abx depending on work-up results and if any intervention will be done by podiatry Will have primary team follow wound C/S results and call ID is consultant if with any question about the results
--- NOTE | 2018-05-13 13:52 | P.PNIM ---
Subjective Interval history: no new pain, did the first part of the bone scan today. Physical Exam Vital signs: Vital Signs 05/12/18 16:00 05/12/18 20:00 05/12/18 20:33 Temperature 98.4 F 98.6 F Pulse Rate 80 80 Respiratory Rate 19 17 Blood Pressure 170/83 H 192/86 H 190/90 H Pulse Oximetry 97 95 05/13/18 00:00 05/13/18 08:00 05/13/18 12:00 Temperature 98.5 F 98.4 F 98.1 F Pulse Rate 87 72 78 Respiratory Rate 17 17 18 Blood Pressure 159/87 H 145/79 H 181/85 H Pulse Oximetry 96 96 96 Intake & Output 05/12/18 05/13/18 05/13/18 18:59 06:59 18:59 Intake Total 2099 / 2099 2095 / 2095 1000 / 1000 Balance 2099 / 2099 2094 / 209 1000 / 1000 Weight 104.9 kg Intake: IV 1100 / 1100 1615 / 1615 1000 / 1000 NS Inj 1,000 ML @ 100 mls/hr IV 1000 / 1000 1000 / 1000 1000 / 1000 .CONT .Q10H [facility] Rx#:[id number] Azactam Inj 2 GM In NS Inj 100 100 / 100 100 / 100 ML @ 200 mls/hr IV.SIG Q12H [facility] Rx#:[id number] Vancomycin Inj 1,500 MG In NS 515 / 515 Inj 500 ML @ 250 mls/hr IV.SIG Q24H [facility] Rx#:[id number] Oral 480 / 480 Other 1000 / 1000 Other: # Voids 1 4 # Bowel Movements 0 Narrative: GENERAL: This is a well-nourished, well-developed patient, in no apparent distress. CARDIOVASCULAR: Regular rate and rhythm without murmurs, gallops, or rubs. RESPIRATORY: Clear to auscultation. Breath sounds equal bilaterally. No wheezes , rales, or rhonchi. MUSCULOSKELETAL: Second toe swollen with excoriating erythematous changes no active discharge seen. bandage C/D/I NEURO: Alert & Oriented x4 to person, place, time, situation. Moves all ext x4 Results - Labs CBC & Chem 7: 05/13/18 08:29 05/13/18 08:29 Laboratory Results - last 24 hr 05/12/18 05/12/18 05/12/18 14:48 17:13 20:23 WBC RBC Hgb Hct MCV MCH MCHC RDW Plt Count MPV Neut % (Auto) Lymph % (Auto) [place] % (Auto) Eos % (Auto) Baso % (Auto) Neut # (Auto) Lymph # (Auto) [place] # (Auto) Eos # (Auto) Baso # (Auto) WBC Differential Differential Comment Sodium Potassium Chloride Carbon Dioxide Anion Gap BUN Creatinine Estimated GFR POC Glucose 115 H 113 H 101 Random Glucose Calcium Total Bilirubin AST ALT Alkaline Phosphatase Total Protein Albumin 05/13/18 05/13/18 05/13/18 08:04 08:29 08:29 WBC 6.2 RBC 3.73 L Hgb 10.3 L Hct 30.1 L MCV 80.8 MCH 27.6 MCHC 34.2 RDW 13.5 Plt Count 262 MPV 7.5 Neut % (Auto) 69.4 Lymph % (Auto) 18.6 [place] % (Auto) 8.3 H Eos % (Auto) 3.2 Baso % (Auto) 0.5 Neut # (Auto) 4.3 Lymph # (Auto) 1.1 [place] # (Auto) 0.5 Eos # (Auto) 0.2 Baso # (Auto) 0.0 WBC Differential . Differential Comment Auto diff final Sodium 145 Potassium 4.5 Chloride 114 H Carbon Dioxide 22.5 Anion Gap 9 BUN 27 H Creatinine 1.60 H Estimated GFR 47 L POC Glucose 141 H Random Glucose 116 H Calcium 8.8 Total Bilirubin 0.2 AST 15 ALT 16 Alkaline Phosphatase 42 L Total Protein 6.9 Albumin 2.8 L 05/13/18 12:02 WBC RBC Hgb Hct MCV MCH MCHC RDW Plt Count MPV Neut % (Auto) Lymph % (Auto) [place] % (Auto) Eos % (Auto) Baso % (Auto) Neut # (Auto) Lymph # (Auto) [place] # (Auto) Eos # (Auto) Baso # (Auto) WBC Differential Differential Comment Sodium Potassium Chloride Carbon Dioxide Anion Gap BUN Creatinine Estimated GFR POC Glucose 168 H Random Glucose Calcium Total Bilirubin AST ALT Alkaline Phosphatase Total Protein Albumin Microbiology 05/11/18 20:20 Abscess - Foot Gram Stain - Final 05/11/18 20:20 Abscess - Foot Wound Culture - Preliminary gram negative rods 05/12/18 21:57 Wound - Foot Gram Stain - Final 05/12/18 21:57 Wound - Foot Wound Culture - Preliminary Immature growth - reincubate Assessment and Plan - Plan 1. Infected diabetic foot wound with osteomyelitis of right 2nd toe //Acute osteomyelitis of right second toe As seen on MRI Broad-spectrum antibiotics. Patient with penicillin allergy. Will use and continue aztreonam and vancomycin. Consult to podiatry. Appreciate assistance/ For bone scan today. Due to osteomyelitis will consult infectious disease for further evaluation. Awaiting final cultures and bone scan for final antibiotics recommendations. Podiatry to review bone scan prior to determining if surgically intervention needed. 2. Acute kidney injury superimposed on CKD stage IV. = Creatinine baseline 1.7 in 2016. Creatinine here now trending down. 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 N.p.o. for surgery. Insulin sliding scale. Hold home meds. Not a good candidate for metformin due to chronic kidney disease. 4. Chronic diabetic peripheral neuropathy. Continue gabapentin 800 mg 3 times daily, gabapentin dosing needs to be decreased due to chronic kidney disease. 5. DVT prophylaxisNo mechanical or pharmaceutical VTE prophalaxis administered due to patient's low risk assessment of VTE. Encouraged ambulation.
--- NOTE | 2018-05-13 14:43 | NM ---
EXAM DATE: 05/13/2018 2:22 PM EDT AGE/SEX: 47 years / Male INDICATIONS: Osteomyelitis. Wound on distal aspect of second digit for three weeks. CLINICAL DATA: This is the patient's initial encounter. Patient reports that signs and symptoms have been present for 3 weeks and indicates a pain score of 2/10. MEDICAL/SURGICAL HISTORY: Diabetes mellitus type II. Congestive heart failure. None. COMPARISON: [facility] [place], MR FOOT RIGHT W & W/O CONTRAST, 05/11/2018. . TECHNIQUE: Bone scan was performed in sagittal, axial and coronal planes. Attenuation correction was performed with computed tomography and both the attenuation correction and non-attenuation corrected data sets were reviewed. PRIOR BONE SCANS: No correlative bone scan available for comparison. DOSE: 31 mCi Tc99m MDP IV IMAGING: SPECT/CT imaging with fusion was performed. RADIATION DOSE: 2.04 CTDIvol(mGy) FINDINGS: There appears to be some increased flow to the right foot compared to the left. There is increased fo nael uptake on the blood pool images in the region of the right second toe. On the delayed images ther e is focal localization of tracer activity to the distal phalanx of the right second toe. Suspicious for an inflammatory process such as osteomyelitis. This would correlate with the recent MRI of the fo ot. The rest the examination is unremarkable for patient's age. CONCLUSION: 1. Focal increased uptake and localization of tracer activity to the distal phalanx of the second to e suspicious for inflammatory process such as osteomyelitis. This correlates with the recent MRI of t he foot. Electronically signed by: Asad Campbell MD 05/13/2018 2:42 PM EDT
[2018-05-13] MEDS: Vancomycin Inj 1,500 MG in Sodium Chlor 0.9% Inj 500 ML IV.SIG SCH (15:41)
--- NOTE | 2018-05-13 20:11 | P.PNPOD ---
Subjective Interval history: Patient seen bedside. Denies any nausea, vomiting, fevers, or chills. Physical Exam Vital signs: Vital Signs 05/12/18 20:33 05/13/18 00:00 05/13/18 08:00 Temperature 98.5 F 98.4 F Pulse Rate 87 72 Respiratory Rate 17 17 Blood Pressure 190/90 H 159/87 H 145/79 H Pulse Oximetry 96 96 05/13/18 12:00 05/13/18 16:00 Temperature 98.1 F 97.3 F L Pulse Rate 78 79 Respiratory Rate 18 18 Blood Pressure 181/85 H 182/81 H Pulse Oximetry 96 98 Intake & Output 05/13/18 05/13/18 05/14/18 06:59 18:59 06:59 Intake Total 2095 / 2095 2900 / 2900 Balance 2095 / 5 2900 / 2900 Weight 104.9 kg Intake: IV 1615 / 1615 1999 NS Inj 1,000 ML @ 100 mls/hr IV 1000 / 1000 1999 .CONT .Q10H [facility] Rx#:[id number] Azactam Inj 2 GM In NS Inj 100 100 / 100 ML @ 200 mls/hr IV.SIG Q12H [facility] Rx#:[id number] Vancomycin Inj 1,500 MG In NS 515 / 515 Inj 500 ML @ 250 mls/hr IV.SIG Q24H [facility] Rx#:[id number] Oral 480 / 480 900 / 900 Other: # Voids 4 3 # Bowel Movements 0 1 Narrative: Lower extremity physical exam: Vascular: Dorsalis pedis 2/4, posterior tibial 2/4. Capillary refill time within normal limits to digits X5 bilateral foot. Edema present right second digit Neuro: Gross sensation intact to bilateral lower extremity. Pinpoint sensation decreased. No hyperalgesia noted to bilateral lower extremity Dermatology: Increased erythema, edema and temperature noted to right second digit with distal tip ulceration with purulent drainage. Hyperkeratotic borders noted to ulceration site. Noted probe to capsule. Acute signs of infection present. Mild improvement noted however continued purulent drainage as well as erythema noted to distal right second digit. Musculoskeletal: Tender to palpation to right second digit. Medications and Allergies Active Medications: Active Medications Acetaminophen (Tylenol) 650 mg PO Q6HR PRN PRN Reason: PAIN SCALE 1 TO 2 Last Admin: 05/13/18 09:11 Dose: 650 mg Hydrocodone Bitart/Acetaminophen ([place] 5/325) 1 tab PO Q4H PRN PRN Reason: Pain Scale 3 To 10 Al Hydroxide/Mg Hydroxide (Milk Of Magnesia Liq) 30 ml PO Q12H PRN PRN Reason: Mild Constipation Bisacodyl (Dulcolax Supp) 10 mg RECTAL DAILY PRN PRN Reason: SEVERE CONSITIPATION Clonidine HCl (Catapres) 0.1 mg PO Q6H PRN PRN Reason: SYS BP GREATER THAN 160 MMHG Last Admin: 05/12/18 22:36 Dose: 0.1 mg Dextrose (D50w Vial) 50 ml IV.PUSH UNSCH PRN PRN Reason: PER HYPOGLYCEMIA PROTOCOL Gabapentin (Neurontin) 800 mg PO TID [facility] Last Admin: 05/13/18 17:52 Dose: 800 mg Glucagon (Glucagon Inj) 1 mg OTHER PRN PRN PRN Reason: for Hypoglycemia Protocol Aztreonam 2 gm/ Sodium (Chloride) 100 mls @ 200 mls/hr IV.SIG Q12H [facility] Last Admin: 05/13/18 15:27 Dose: 200 mls/hr Pharmacy Profile Note (Vancomycin Consult Pharmacy) 0 mls @ 0 mls/hr OTHER UNSCH [facility] Sodium Chloride (Ns Inj) 1,000 mls @ 100 mls/hr IV.CONT .Q10H [facility] Last Admin: 05/13/18 18:05 Dose: 100 mls/hr Vancomycin HCl 1,500 mg/ (Sodium Chloride) 515 mls @ 250 mls/hr IV.SIG Q24H [facility] Last Admin: 05/13/18 15:41 Dose: 250 mls/hr Insulin Aspart (Novolog Insulin Suppl Scale Inj) 0 unit SQ ACHS [facility]; Protocol Last Admin: 05/13/18 18:05 Dose: Not Given Lactulose (Lactulose Liq) 30 ml PO DAILY PRN PRN Reason: SEVERE CONSITIPATION Miscellaneous Information ([facility] Ordered Lab Info) 1 each OTHER ONCE ONE Stop: 05/14/18 15:46 Naloxone HCl (Narcan Inj) 0.4 mg IV.PUSH UNSCH PRN PRN Reason: SEE LABEL COMMENTS Sennosides (Senokot) 17.2 mg PO Q12H PRN PRN Reason: Moderate Constipation Temazepam (Restoril) 15 mg PO HS PRN PRN Reason: INSOMNIA Allergies Allergy/AdvReac Type Severity Reaction Status Date / Time penicillin G Allergy Intermediate Hives Verified 05/11/18 17:15 Sulfa (Sulfonamide Allergy Mild Hives Verified 05/11/18 17:15 Antibiotics) Home Medications Medication Instructions Recorded Confirmed Type Actos 15 mg PO BID 05/11/18 05/11/18 History gabapentin 800 mg PO QID 05/11/18 05/12/18 History metformin 1,000 mg PO BID 05/11/18 05/11/18 History Results - Labs CBC & Chem 7: 05/13/18 08:29 05/13/18 08:29 Laboratory Results - last 24 hr 05/12/18 05/13/18 05/13/18 20:23 08:04 08:29 WBC 6.2 RBC 3.73 L Hgb 10.3 L Hct 30.1 L MCV 80.8 MCH 27.6 MCHC 34.2 RDW 13.5 Plt Count 262 MPV 7.5 Neut % (Auto) 69.4 Lymph % (Auto) 18.6 [place] % (Auto) 8.3 H Eos % (Auto) 3.2 Baso % (Auto) 0.5 Neut # (Auto) 4.3 Lymph # (Auto) 1.1 [place] # (Auto) 0.5 Eos # (Auto) 0.2 Baso # (Auto) 0.0 WBC Differential . Differential Comment Auto diff final Sodium Potassium Chloride Carbon Dioxide Anion Gap BUN Creatinine Estimated GFR POC Glucose 101 141 H Random Glucose Calcium Total Bilirubin AST ALT Alkaline Phosphatase Total Protein Albumin 05/13/18 05/13/18 05/13/18 08:29 12:02 18:00 WBC RBC Hgb Hct MCV MCH MCHC RDW Plt Count MPV Neut % (Auto) Lymph % (Auto) [place] % (Auto) Eos % (Auto) Baso % (Auto) Neut # (Auto) Lymph # (Auto) [place] # (Auto) Eos # (Auto) Baso # (Auto) WBC Differential Differential Comment Sodium 145 Potassium 4.5 Chloride 114 H Carbon Dioxide 22.5 Anion Gap 9 BUN 27 H Creatinine 1.60 H Estimated GFR 47 L POC Glucose 168 H 159 H Random Glucose 116 H Calcium 8.8 Total Bilirubin 0.2 AST 15 ALT 16 Alkaline Phosphatase 42 L Total Protein 6.9 Albumin 2.8 L Microbiology 05/11/18 20:20 Abscess - Foot Gram Stain - Final 05/11/18 20:20 Abscess - Foot Wound Culture - Preliminary gram negative rods 05/12/18 21:57 Wound - Foot Gram Stain - Final 05/12/18 21:57 Wound - Foot Wound Culture - Preliminary Immature growth - reincubate - Imaging Impressions SPECT Scan-Bone NM 05/13/18 00:00 CONCLUSION: 1. Focal increased uptake and localization of tracer activity to the distal phalanx of the second toe suspicious for inflammatory process such as osteomyelitis. This correlates with the recent MRI of the foot. Assessment and Plan - Plan 47-year-old male with right second digit infection Patient examined evaluated with all questions answered Discussed x-ray and MRI results with patient Discussed three-phase bone scan results with patient All studies positive for osteomyelitis Discussed with patient amputation to right second digit however he is refusing amputation at this point in time and would like to continue with IV antibiotics Infectious disease recommendations for antibiotic therapy as outpatient Would recommend patient stay in house for another 48 hours as infection has only improved mildly Continue with daily dressing changes Will order Silvadene to be applied to right second digit Right second digit Xeroform, 4 x 4's and Ashly applied Discussed with patient IV antibiotics and distal phalanx osteomyelitis has low likelihood of resolving, he is still refusing amputation and would like to move forward with outpatient anabiotic therapy Recommended follow-up with orientor who takes insurance will have case management arrange an appointment, patient may be able to follow-up with [place] [facility]
[2018-05-14] MEDS: Aztreonam Inj 2 GM in Sodium Chloride 0.9% Inj 100 ML IV.SIG SCH ×2 (03:08→13:49)
[2018-05-14] MEDS: Insulin NovoLOG Aspart Correctional Sugar Inj SQ SCH ×4 (08:41→21:17)
[2018-05-14] MEDS: Gabapentin 400 MG Capsule PO SCH ×2 (08:42→21:12)
[2018-05-14] MEDS: Acetaminophen 325 MG Tablet PO PRN (08:42)
[2018-05-14] MEDS: Sod Chloride 0.9% Inj 1,000 ML IV.CONT SCH ×2 (12:55→13:53)
--- NOTE | 2018-05-14 15:32 | P.PN ---
Subjective Interval history: Follow-up osteomyelitis right second toe. Still refusing surgery. Mother is willing to administer IV antibiotic at home which she has done in the past for her . Physical Exam Vital signs: Vital Signs 05/13/18 16:00 05/13/18 20:00 05/14/18 00:00 Temperature 97.3 F L 98.0 F 97.8 F Pulse Rate 79 85 77 Respiratory Rate 18 18 18 Blood Pressure 182/81 H 185/91 H 153/83 H Pulse Oximetry 98 96 95 05/14/18 08:00 05/14/18 09:21 05/14/18 12:00 Temperature 98.4 F 97.8 F Pulse Rate 80 67 Respiratory Rate 20 Blood Pressure 164/81 H 158/78 H 138/74 Pulse Oximetry 96 19 L Intake & Output 05/13/18 05/14/18 05/14/18 18:59 06:59 18:59 Intake Total 3000 / 3000 715 / 715 Balance 3000 / 3000 715 / 715 Intake: IV 2100 / 2100 715 / 715 NS Inj 1,000 ML @ 100 mls/hr IV 1999 / 1999 .CONT .Q10H [facility] Rx#:[id number] Azactam Inj 2 GM In NS Inj 100 100 / 100 200 / 200 ML @ 200 mls/hr IV.SIG Q12H [facility] Rx#:[id number] Vancomycin Inj 1,500 MG In NS 515 / 515 Inj 500 ML @ 250 mls/hr IV.SIG Q24H [facility] Rx#:[id number] Oral 900 / 900 Other: # Voids 3 2 # Bowel Movements 1 Narrative: GENERAL: Well-developed well-nourished in no distress SKIN: Warm and dry. CARDIOVASCULAR: Regular rate and rhythm without murmurs, gallops, or rubs. RESPIRATORY: Breath sounds equal bilaterally. No accessory muscle use. GASTROINTESTINAL: Abdomen soft, non-tender, nondistended. MUSCULOSKELETAL: No cyanosis, or edema. Right second toe is with excoriation BACK: Nontender without obvious deformity. No CVA tenderness. Results - Labs CBC & Chem 7: 05/13/18 08:29 05/14/18 03:37 Laboratory Results - last 24 hr 05/13/18 05/13/18 05/14/18 But a possible discharge labs okay 3 is possible discharge and labs for tomorrow but the name Mila said that it is palpatory 70 060 possible to the chest tube no labs for tomorrow but waiting for [facility] team is discharged today if labs tomorrow then 19 is yet was also uses try to facilitate labs 128 we really need home care which according to Mila would not be possible 18:00 21:17 03:37 Creatinine 1.83 H Estimated GFR 40 L POC Glucose 159 H 193 H 05/14/18 05/14/18 08:14 12:03 Creatinine Estimated GFR POC Glucose 128 H 196 H Microbiology 05/12/18 21:57 Wound - Foot Gram Stain - Final 05/12/18 21:57 Wound - Foot Wound Culture - Preliminary Klebsiella oxytoca Staphylococcus aureus 05/11/18 20:20 Abscess - Foot Gram Stain - Final 05/11/18 20:20 Abscess - Foot Wound Culture - Final Klebsiella oxytoca Mixed Anaerobes Microbiology 05/12/18 21:57 Wound - Foot Gram Stain - Final 05/12/18 21:57 Wound - Foot Wound Culture - Preliminary Klebsiella oxytoca Staphylococcus aureus 05/11/18 20:20 Abscess - Foot Gram Stain - Final 05/11/18 20:20 Abscess - Foot Wound Culture - Final Klebsiella oxytoca Mixed Anaerobes - Imaging ITS Impressions Toe X-Ray 05/11/18 19:14 CONCLUSION: No acute bony abnormality identified. Soft tissue swelling at the second toe. No radiopaque foreign body. Foot MRI 05/11/18 21:31 CONCLUSION: 1. Marrow edema distal phalanx of the second toe, possibly an early osteomyelitis although difficult to confirm marrow enhancement postcontrast. There is some subcutaneous edema in the forefoot. SPECT Scan-Bone NM 05/13/18 00:00 CONCLUSION: 1. Focal increased uptake and localization of tracer activity to the distal phalanx of the second toe suspicious for inflammatory process such as osteomyelitis. This correlates with the recent MRI of the foot. - Procedures none Assessment and Plan - Plan 1. Infected diabetic foot wound with osteomyelitis of right 2nd toe //Acute osteomyelitis of right second toe As seen on MRI and bone scan Broad-spectrum antibiotics. Patient with penicillin allergy. Will use and continue aztreonam and vancomycin. Consult to podiatry. Appreciate assistance, patient refusing surgical intervention wants to continue IV antibiotics as recommended by infectious disease 2. CKD stage IV. = Creatinine baseline 1.7 in 2016. Creatinine here now trending down. 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 Continue insulin sliding scale. Hold home meds. Not a good candidate for metformin due to chronic kidney disease. 4. Chronic diabetic peripheral neuropathy. Continue gabapentin 800 mg 3 times daily, gabapentin dosing needs to be decreased due to chronic kidney disease. 5. DVT prophylaxisNo mechanical or pharmaceutical VTE prophylaxis administered due to patient's low risk assessment of VTE. Encouraged ambulation. Discharge Planning: dc when [facility] arrranged
[2018-05-14] MEDS ORDERED: Pharmacy Ordered Lab Info OTHER ONE (15:45)
[2018-05-14] MEDS: Vancomycin Inj 1,500 MG in Sodium Chlor 0.9% Inj 500 ML IV.SIG SCH (16:44)
[2018-05-15] MEDS: Aztreonam Inj 2 GM in Sodium Chloride 0.9% Inj 100 ML IV.SIG SCH ×2 (02:03→13:07)
[2018-05-15 07:39] LABS: Baso % (Auto) 0.6 % (0.0-2.0); Eos # (Auto) 0.3 th/mm3 (0.0-0.4); Eos % (Auto) 4.2 % (0.0-4.0); Hematocrit 31.3 % (39.0-51.0); Hemoglobin 10.5 gm/dL (13.0-17.0); Lymph # (Auto) 1.4 th/mm3 (1.0-4.8); Lymph % (Auto) 20.5 % (9.0-44.0); Mean Corpuscular HGB Conc 33.6 % (32.0-36.0); Mean Corpuscular Hemoglobin 26.9 pg (27.0-34.0); Mean Corpuscular Volume 80.1 fL (80.0-100.0); Mean Platelet Volume 7.1 fL (7.0-11.0); Mono # (Auto) 0.7 th/mm3 (0.0-0.9); Mono % (Auto) 9.9 % (0.0-8.0); Neut # (Auto) 4.4 th/mm3 (1.8-7.7); Neut % (Auto) 64.8 % (16.0-70.0); Platelet Count 291 th/mm3 (150-450); Red Cell Distribution Width 13.5 % (11.6-17.2); White Blood Count 6.8 th/mm3 (4.0-11.0)
[2018-05-15 08:12] LABS: Calcium 9.1 mg/dL (8.5-10.1); Carbon Dioxide 24.3 meq/L (21.0-32.0); Magnesium 2.3 mg/dL (1.5-2.5); Potassium 4.2 meq/L (3.5-5.1)
[2018-05-15] MEDS: Insulin NovoLOG Aspart Correctional Sugar Inj SQ SCH ×4 (08:12→21:02)
[2018-05-15] MEDS: Sod Chloride 0.9% Inj 1,000 ML IV.CONT SCH ×3 (08:12→21:02)
[2018-05-15] MEDS: Gabapentin 400 MG Capsule PO SCH ×2 (08:12→20:57)
[2018-05-15] MEDS: Vancomycin Inj 1,750 MG in Sodium Chlor 0.9% Inj 500 ML IV.SIG SCH (13:07)
--- NOTE | 2018-05-15 17:45 | P.PN ---
Subjective Interval history: Follow-up toe osteomyelitis. He now agrees to proceed with amputation. Per patient he will undergo surgery on Wednesday per podiatry Physical Exam Vital signs: Vital Signs 05/14/18 20:12 05/15/18 00:11 05/15/18 08:00 Temperature 97.9 F 98.8 F 98.0 F Pulse Rate 73 72 70 Respiratory Rate 18 18 18 Blood Pressure 177/88 H 149/74 H 174/84 H Pulse Oximetry 98 96 96 05/15/18 12:00 05/15/18 17:14 Temperature 98.3 F 98.3 F Pulse Rate 74 78 Respiratory Rate 17 20 Blood Pressure 162/72 H 204/91 H Pulse Oximetry 96 97 Intake & Output 05/14/18 05/15/18 05/15/18 18:59 06:59 18:59 Intake Total 1989 1780 / 1780 717.5 / 717.5 Balance 1989 1780 / 1780 717.5 / 717.5 Weight 104.9 kg Intake: IV 1230 / 1230 1000 / 1000 717.5 / 717.5 NS Inj 1,000 ML @ 100 mls/hr IV 1000 / 1000 .CONT .Q10H [facility] Rx#:[id number] Azactam Inj 2 GM In NS Inj 100 200 / 200 200 / 200 ML @ 200 mls/hr IV.SIG Q12H [facility] Rx#:[id number] Vancomycin Inj 1,750 MG In NS 1030 / 1030 517.5 / 517.5 Inj 500 ML @ 250 mls/hr IV.SIG Q24H [facility] Rx#:[id number] Oral 760 / 760 780 / 780 Other: # Voids 4 3 Narrative: GENERAL: Well-developed well-nourished in no distress SKIN: Warm and dry. CARDIOVASCULAR: Regular rate and rhythm without murmurs, gallops, or rubs. RESPIRATORY: Breath sounds equal bilaterally. No accessory muscle use. GASTROINTESTINAL: Abdomen soft, non-tender, nondistended. MUSCULOSKELETAL: No cyanosis, or edema. Right second toe is swollen with excoriation BACK: Nontender without obvious deformity. No CVA tenderness. Results - Labs CBC & Chem 7: 05/15/18 06:53 05/15/18 06:53 Laboratory Results - last 24 hr 05/14/18 05/15/18 05/15/18 21:17 06:53 06:53 WBC 6.8 RBC 3.90 L Hgb 10.5 L Hct 31.3 L MCV 80.1 MCH 26.9 L MCHC 33.6 RDW 13.5 Plt Count 291 MPV 7.1 Neut % (Auto) 64.8 Lymph % (Auto) 20.5 [place] % (Auto) 9.9 H Eos % (Auto) 4.2 H Baso % (Auto) 0.6 Neut # (Auto) 4.4 Lymph # (Auto) 1.4 [place] # (Auto) 0.7 Eos # (Auto) 0.3 Baso # (Auto) 0.0 WBC Differential . Differential Comment Auto diff final Sodium 144 Potassium 4.2 Chloride 112 H Carbon Dioxide 24.3 Anion Gap 8 BUN 25 H Creatinine 1.63 H Estimated GFR 46 L POC Glucose 183 H Random Glucose 119 H Calcium 9.1 Magnesium 2.3 05/15/18 05/15/18 05/15/18 08:08 11:38 16:44 WBC RBC Hgb Hct MCV MCH MCHC RDW Plt Count MPV Neut % (Auto) Lymph % (Auto) [place] % (Auto) Eos % (Auto) Baso % (Auto) Neut # (Auto) Lymph # (Auto) [place] # (Auto) Eos # (Auto) Baso # (Auto) WBC Differential Differential Comment Sodium Potassium Chloride Carbon Dioxide Anion Gap BUN Creatinine Estimated GFR POC Glucose 137 H 192 H 124 H Random Glucose Calcium Magnesium Microbiology 05/11/18 20:20 Abscess - Foot Gram Stain - Final 05/11/18 20:20 Abscess - Foot Wound Culture - Preliminary Klebsiella oxytoca Haemophilus parainfluenzae Mixed Anaerobes 05/12/18 21:57 Wound - Foot Gram Stain - Final 05/12/18 21:57 Wound - Foot Wound Culture - Final Klebsiella oxytoca Staphylococcus aureus - Procedures none Assessment and Plan - Plan 1. Infected diabetic foot wound with osteomyelitis of right 2nd toe As seen on MRI and bone scan Broad-spectrum antibiotics. Patient with penicillin allergy. Will continue aztreonam and vancomycin. Consult to podiatry. Appreciate assistance, patient now agreeing with surgical intervention possibly on Wednesday 2. CKD stage IV. = Creatinine baseline 1.7 in 2016. Creatinine here now trending down. 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 Continue insulin sliding scale. Hold home meds. Not a good candidate for metformin due to chronic kidney disease. 4. Chronic diabetic peripheral neuropathy. Continue gabapentin 800 mg 3 times daily, gabapentin dosing needs to be decreased due to chronic kidney disease. 5. Hypertension. Start Norvasc continue to monitor DVT prophylaxisNo mechanical or pharmaceutical VTE prophylaxis administered due to patient's low risk assessment of VTE. Encouraged ambulation. Discharge Planning: dc after surgery
[2018-05-15] MEDS: amLODIPine 5 MG Tablet PO SCH (18:00)
--- NOTE | 2018-05-15 21:09 | P.PNPOD ---
Subjective Interval history: Patient seen bedside. Denies any nausea vomiting fevers or chills. States he is eager to get back to work and discharged from the hospital. Physical Exam Vital signs: Vital Signs 05/15/18 00:11 05/15/18 08:00 05/15/18 12:00 Temperature 98.8 F 98.0 F 98.3 F Pulse Rate 72 70 74 Respiratory Rate 18 18 17 Blood Pressure 149/74 H 174/84 H 162/72 H Pulse Oximetry 96 96 96 05/15/18 17:14 05/15/18 20:17 Temperature 98.3 F 98.4 F Pulse Rate 78 76 Respiratory Rate 20 18 Blood Pressure 204/91 H 159/70 H Pulse Oximetry 97 98 Intake & Output 05/15/18 05/15/18 05/16/18 06:59 18:59 06:59 Intake Total 1780 / 1780 2817.5 / 2817.5 Balance 1780 / 1780 2817.5 / 2817.5 Weight 104.9 kg Intake: IV 1000 / 1000 1717.5 / 1717.5 NS Inj 1,000 ML @ 100 mls/hr IV 1000 / 1000 1000 / 1000 .CONT .Q10H [facility] Rx#:[id number] Azactam Inj 2 GM In NS Inj 100 200 / 200 ML @ 200 mls/hr IV.SIG Q12H [facility] Rx#:[id number] Vancomycin Inj 1,750 MG In NS 517.5 / 517.5 Inj 500 ML @ 250 mls/hr IV.SIG Q24H [facility] Rx#:[id number] Oral 780 / 780 1100 / 1100 Other: # Voids 3 6 # Bowel Movements 0 Narrative: Lower extremity physical exam: Vascular: Dorsalis pedis 2/4, posterior tibial 2/4. Capillary refill time within normal limits to digits X5 bilateral foot. Edema present right second digit Neuro: Gross sensation intact to bilateral lower extremity. Pinpoint sensation decreased. No hyperalgesia noted to bilateral lower extremity Dermatology: Increased erythema, edema and temperature noted to right second digit with distal tip ulceration with purulent drainage. Hyperkeratotic borders noted to ulceration site. Noted probe to capsule. Acute signs of infection present. No improvement noted since last exam however continued purulent drainage as well as erythema noted to distal right second digit. Musculoskeletal: Tender to palpation to right second digit. Medications and Allergies Active Medications: Active Medications Acetaminophen (Tylenol) 650 mg PO Q6HR PRN PRN Reason: PAIN SCALE 1 TO 2 Last Admin: 05/14/18 08:42 Dose: 650 mg Hydrocodone Bitart/Acetaminophen ([place] 5/325) 1 tab PO Q4H PRN PRN Reason: Pain Scale 3 To 10 Al Hydroxide/Mg Hydroxide (Milk Of Magnesia Liq) 30 ml PO Q12H PRN PRN Reason: Mild Constipation Amlodipine Besylate (Norvasc) 5 mg PO DAILY [facility] Last Admin: 05/15/18 18:00 Dose: 5 mg Bisacodyl (Dulcolax Supp) 10 mg RECTAL DAILY PRN PRN Reason: SEVERE CONSITIPATION Clonidine HCl (Catapres) 0.1 mg PO Q6H PRN PRN Reason: SYS BP GREATER THAN 160 MMHG Last Admin: 05/15/18 18:00 Dose: 0.1 mg Dextrose (D50w Vial) 50 ml IV.PUSH UNSCH PRN PRN Reason: PER HYPOGLYCEMIA PROTOCOL Gabapentin (Neurontin) 800 mg PO BID [facility] Last Admin: 05/15/18 20:57 Dose: 800 mg Glucagon (Glucagon Inj) 1 mg OTHER PRN PRN PRN Reason: for Hypoglycemia Protocol Aztreonam 2 gm/ Sodium (Chloride) 100 mls @ 200 mls/hr IV.SIG Q12H [facility] Last Infusion: 05/15/18 15:33 Dose: Infused Pharmacy Profile Note (Vancomycin Consult Pharmacy) 0 mls @ 0 mls/hr OTHER UNSCH [facility] Sodium Chloride (Ns Inj) 1,000 mls @ 100 mls/hr IV.CONT .Q10H [facility] Last Admin: 05/15/18 21:02 Dose: Not Given Vancomycin HCl 1,750 mg/ (Sodium Chloride) 517.5 mls @ 250 mls/hr IV.SIG Q24H [facility] Last Infusion: 05/15/18 15:34 Dose: Infused Insulin Aspart (Novolog Insulin Suppl Scale Inj) 0 unit SQ ACHS [facility]; Protocol Last Admin: 05/15/18 21:02 Dose: 3 unit Lactulose (Lactulose Liq) 30 ml PO DAILY PRN PRN Reason: SEVERE CONSITIPATION Miscellaneous Information ([facility] Ordered Lab Info) 0 each OTHER ONCE ONE Stop: 05/17/18 13:46 Naloxone HCl (Narcan Inj) 0.4 mg IV.PUSH UNSCH PRN PRN Reason: SEE LABEL COMMENTS Sennosides (Senokot) 17.2 mg PO Q12H PRN PRN Reason: Moderate Constipation Temazepam (Restoril) 15 mg PO HS PRN PRN Reason: INSOMNIA Allergies Allergy/AdvReac Type Severity Reaction Status Date / Time penicillin G Allergy Intermediate Hives Verified 05/11/18 17:15 Sulfa (Sulfonamide Allergy Mild Hives Verified 05/11/18 17:15 Antibiotics) Home Medications Medication Instructions Recorded Confirmed Type Actos 15 mg PO BID 05/11/18 05/11/18 History gabapentin 800 mg PO QID 05/11/18 05/12/18 History metformin 1,000 mg PO BID 05/11/18 05/11/18 History Results - Labs CBC & Chem 7: 05/15/18 06:53 05/15/18 06:53 Laboratory Results - last 24 hr 05/14/18 05/15/18 05/15/18 21:17 06:53 06:53 WBC 6.8 RBC 3.90 L Hgb 10.5 L Hct 31.3 L MCV 80.1 MCH 26.9 L MCHC 33.6 RDW 13.5 Plt Count 291 MPV 7.1 Neut % (Auto) 64.8 Lymph % (Auto) 20.5 [place] % (Auto) 9.9 H Eos % (Auto) 4.2 H Baso % (Auto) 0.6 Neut # (Auto) 4.4 Lymph # (Auto) 1.4 [place] # (Auto) 0.7 Eos # (Auto) 0.3 Baso # (Auto) 0.0 WBC Differential . Differential Comment Auto diff final Sodium 144 Potassium 4.2 Chloride 112 H Carbon Dioxide 24.3 Anion Gap 8 BUN 25 H Creatinine 1.63 H Estimated GFR 46 L POC Glucose 183 H Random Glucose 119 H Calcium 9.1 Magnesium 2.3 05/15/18 05/15/18 05/15/18 08:08 11:38 16:44 WBC RBC Hgb Hct MCV MCH MCHC RDW Plt Count MPV Neut % (Auto) Lymph % (Auto) [place] % (Auto) Eos % (Auto) Baso % (Auto) Neut # (Auto) Lymph # (Auto) [place] # (Auto) Eos # (Auto) Baso # (Auto) WBC Differential Differential Comment Sodium Potassium Chloride Carbon Dioxide Anion Gap BUN Creatinine Estimated GFR POC Glucose 137 H 192 H 124 H Random Glucose Calcium Magnesium Microbiology 05/11/18 20:20 Abscess - Foot Gram Stain - Final 05/11/18 20:20 Abscess - Foot Wound Culture - Preliminary Klebsiella oxytoca Haemophilus parainfluenzae Mixed Anaerobes 05/12/18 21:57 Wound - Foot Gram Stain - Final 05/12/18 21:57 Wound - Foot Wound Culture - Final Klebsiella oxytoca Staphylococcus aureus - Procedures none Assessment and Plan - Plan 47-year-old male with right second digit infection Patient examined evaluated with all questions answered Discussed x-ray and MRI results with patient Discussed three-phase bone scan results with patient All studies positive for osteomyelitis Discussed with patient amputation to right second digit and he is now going to proceed with right second digit amputation Continue with daily dressing changes Dr. Hess to perform right second digit amputation on Wednesday
[2018-05-16] MEDS: Insulin NovoLOG Aspart Correctional Sugar Inj SQ SCH ×4 (08:56→21:41)
[2018-05-16] MEDS: Acetaminophen 325 MG Tablet PO PRN ×2 (09:07→15:54)
[2018-05-16] MEDS: amLODIPine 5 MG Tablet PO SCH (09:08)
[2018-05-16] MEDS: Gabapentin 400 MG Capsule PO SCH ×2 (09:08→23:09)
--- NOTE | 2018-05-16 09:49 | ECG ---
Date Performed: 05/15/2018 Time Performed: 22:26:47 PTAGE: 47 years EKG: Sinus rhythm NORMAL ECG Since the PREVIOUS TRACING , no significant change noted PREVIOUS TRACIN10/01/2016 05.41 DOCTOR: Sawyer Peña Interpretating Date/Time 05/16/2018 09:46:32
--- NOTE | 2018-05-16 10:02 | XR ---
EXAM DATE: 05/16/2018 9:43 AM EDT AGE/SEX: 47 years / Male INDICATIONS: Evaluate for hypertension. CLINICAL DATA: This is the patient's subsequent encounter. Patient reports that signs and symptoms h ave been present for 3 weeks and indicates a pain score of 0/10. MEDICAL/SURGICAL HISTORY: Diabetes mellitus type II. Congestive heart failure. None. COMPARISON: No prior exams available for comparison. FINDINGS: A single AP view of the chest demonstrates the lungs to be symmetrically aerated without evidence of mass, infiltrate or effusion. Mild prominence the cardiac silhouette.. Osseous structures are intact . CONCLUSION: Mild prominence cardiac silhouette otherwise negative for acute process. Electronically signed by: Gatito Lopez MD 05/16/2018 10:01 AM EDT
[2018-05-16] MEDS: Aztreonam Inj 2 GM in Sodium Chloride 0.9% Inj 100 ML IV.SIG SCH ×2 (11:30→13:23)
[2018-05-16] MEDS: Sod Chloride 0.9% Inj 1,000 ML IV.CONT SCH ×2 (12:20→15:09)
--- NOTE | 2018-05-16 12:22 | P.PN ---
Subjective Interval history: Follow-up diabetic foot infection. Patient for second toe amputation later today. Physical Exam Vital signs: Vital Signs 05/15/18 17:14 05/15/18 20:17 05/16/18 00:21 Temperature 98.3 F 98.4 F 98.9 F Pulse Rate 78 76 78 Respiratory Rate 20 18 18 Blood Pressure 204/91 H 159/70 H 154/86 H Pulse Oximetry 97 98 95 Intake & Output 05/15/18 05/16/18 05/16/18 18:59 06:59 18:59 Intake Total 2817.5 / 2817.5 780 / 780 1000 / 1000 Balance 2817.5 / 2817.5 780 / 780 1000 / 1000 Weight 104.9 kg Intake: IV 1717.5 / 1717.5 1000 / 1000 NS Inj 1,000 ML @ 100 mls/hr IV 1000 / 1000 1000 / 1000 .CONT .Q10H [facility] Rx#:[id number] Azactam Inj 2 GM In NS Inj 100 200 / 200 ML @ 200 mls/hr IV.SIG Q12H [facility] Rx#:[id number] Vancomycin Inj 1,750 MG In NS 517.5 / 517.5 Inj 500 ML @ 250 mls/hr IV.SIG Q24H [facility] Rx#:[id number] Oral 1100 / 1100 780 / 780 Other: # Voids 6 4 Date of Last Bowel Movement 05/16/18 # Bowel Movements 0 Results - Labs CBC & Chem 7: 05/15/18 06:53 05/16/18 07:33 Laboratory Results - last 24 hr 05/15/18 05/15/18 05/16/18 16:44 21:01 07:33 Creatinine 1.51 H Estimated GFR 50 L POC Glucose 124 H 227 H 05/16/18 05/16/18 08:02 10:38 Creatinine Estimated GFR POC Glucose 111 H 186 H Microbiology 05/11/18 20:20 Abscess - Foot Gram Stain - Final 05/11/18 20:20 Abscess - Foot Wound Culture - Final Klebsiella oxytoca Haemophilus parainfluenzae Mixed Anaerobes 05/12/18 21:57 Wound - Foot Gram Stain - Final 05/12/18 21:57 Wound - Foot Wound Culture - Final Klebsiella oxytoca Staphylococcus aureus - Imaging Impressions Chest X-Ray 05/16/18 06:00 CONCLUSION: Mild prominence cardiac silhouette otherwise negative for acute process. - Procedures none Assessment and Plan - Plan 1. Infected diabetic foot wound with osteomyelitis of right 2nd toe As seen on MRI and bone scan Broad-spectrum antibiotics. Patient with penicillin allergy. Will continue aztreonam and vancomycin. ID has added Flagyl Consult to podiatry. Appreciate assistance, patient now agreeing with surgical intervention today. Per ID may not need long-term antibiotic likely discharged on p.o. Levaquin and Flagyl 2. CKD stage IV. = Creatinine baseline 1.7 in 2016. Creatinine here now trending down. 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 Continue insulin sliding scale. Hold home meds. Not a good candidate for metformin due to chronic kidney disease. 4. Chronic diabetic peripheral neuropathy. Continue gabapentin 800 mg 3 times daily, gabapentin dosing needs to be decreased due to chronic kidney disease. 5. Hypertension. Start Norvasc continue to monitor DVT prophylaxisNo mechanical or pharmaceutical VTE prophylaxis administered due to patient's low risk assessment of VTE. Encouraged ambulation. Discharge Planning: dc after surgery possibly tomorrow
--- NOTE | 2018-05-16 12:52 | P.PNID ---
Subjective Remarks: Patient is a 47-year-old male, with diabetes, presented to the hospital complaining of pain redness and swelling on his right second toe. Patient stated that he had noticed a callus on his right second toe for the last several months. About 2-3 weeks ago he had part of the callus, and since then he has had some open wound on that second toe. He was doing his own wound care and according to the patient it looks like it might be healing. However on May 08 he noted some purulent drainage coming out of that wound. He was doing his own care for the wound, and the following day when he woke up he noticed that his second toe was red and swollen. It progressively worsened so he presented to the hospital for further evaluation and treatment. He denies any fever chills or sweats. He has not had any respiratory, GI or any urinary complaints. Since admission his temperature has been low-grade. His sed rate is 51. MRI of the foot is showing suggestion of osteomyelitis of the distal phalanx. Infectious disease consultation has been requested to evaluate the patient. Notes reviewed Afebrile Wound C/S polymicrobial Klebsiella, MSSA, hemophilus, anaerobes Podiatry notes reviewed Patient initoally did not want surgery, now has agreed Antibiotics: Azactam Vancomycin Flagyl Lines: PIV no evidence of infection Past Medical History: CHF (congestive heart failure) (Acute) Diabetes Peripheral neuropathy Allergies/Adverse Reactions: Allergies penicillin G Allergy (Intermediate, Verified 05/11/18 17:15) Hives Sulfa (Sulfonamide Antibiotics) Allergy (Mild, Verified 05/11/18 17:15) Hives Objective Vital Signs 05/15/18 17:14 05/15/18 20:17 05/16/18 00:21 Temperature 98.3 F 98.4 F 98.9 F Pulse Rate 78 76 78 Respiratory Rate 20 18 18 Blood Pressure 204/91 H 159/70 H 154/86 H Pulse Oximetry 97 98 95 Intake & Output 05/15/18 05/16/18 05/16/18 18:59 06:59 18:59 Intake Total 2817.5 / 2817.5 780 / 780 1000 / 1000 Balance 2817.5 / 2817.5 780 / 780 1000 / 1000 Weight 104.9 kg Intake: IV 1717.5 / 1717.5 1000 / 1000 NS Inj 1,000 ML @ 100 mls/hr IV 1000 / 1000 1000 / 1000 .CONT .Q10H [facility] Rx#:[id number] Azactam Inj 2 GM In NS Inj 100 200 / 200 ML @ 200 mls/hr IV.SIG Q12H [facility] Rx#:[id number] Vancomycin Inj 1,750 MG In NS 517.5 / 517.5 Inj 500 ML @ 250 mls/hr IV.SIG Q24H [facility] Rx#:[id number] Oral 1100 / 1100 780 / 780 Other: # Voids 6 4 Date of Last Bowel Movement 05/16/18 # Bowel Movements 0 05/11/18 20:20 Abscess - Foot Gram Stain - Final 05/11/18 20:20 Abscess - Foot Wound Culture - Final Klebsiella oxytoca Haemophilus parainfluenzae Mixed Anaerobes 05/12/18 21:57 Wound - Foot Gram Stain - Final 05/12/18 21:57 Wound - Foot Wound Culture - Final Klebsiella oxytoca Staphylococcus aureus Lab - Hematology Results 05/15/18 06:53 WBC 6.8 RBC 3.90 L Hgb 10.5 L Hct 31.3 L MCV 80.1 MCH 26.9 L MCHC 33.6 RDW 13.5 Plt Count 291 MPV 7.1 Neut % (Auto) 64.8 Lymph % (Auto) 20.5 [place] % (Auto) 9.9 H Eos % (Auto) 4.2 H Baso % (Auto) 0.6 Neut # (Auto) 4.4 Lymph # (Auto) 1.4 [place] # (Auto) 0.7 Eos # (Auto) 0.3 Baso # (Auto) 0.0 WBC Differential . Differential Comment Auto diff final Lab - Chemistry Results 05/14/18 05/14/18 05/15/18 16:48 21:17 06:53 Sodium 144 Potassium 4.2 Chloride 112 H Carbon Dioxide 24.3 Anion Gap 8 BUN 25 H Creatinine 1.63 H Estimated GFR 46 L POC Glucose 144 H 183 H Random Glucose 119 H Calcium 9.1 Magnesium 2.3 05/15/18 05/15/18 05/15/18 08:08 11:38 16:44 Sodium Potassium Chloride Carbon Dioxide Anion Gap BUN Creatinine Estimated GFR POC Glucose 137 H 192 H 124 H Random Glucose Calcium Magnesium 05/15/18 05/16/18 05/16/18 21:01 07:33 08:02 Sodium Potassium Chloride Carbon Dioxide Anion Gap BUN Creatinine 1.51 H Estimated GFR 50 L POC Glucose 227 H 111 H Random Glucose Calcium Magnesium 05/16/18 10:38 Sodium Potassium Chloride Carbon Dioxide Anion Gap BUN Creatinine Estimated GFR POC Glucose 186 H Random Glucose Calcium Magnesium Imaging: ITS Impressions Toe X-Ray 05/11/18 19:14 CONCLUSION: No acute bony abnormality identified. Soft tissue swelling at the second toe. No radiopaque foreign body. Foot MRI 05/11/18 21:31 CONCLUSION: 1. Marrow edema distal phalanx of the second toe, possibly an early osteomyelitis although difficult to confirm marrow enhancement postcontrast. There is some subcutaneous edema in the forefoot. SPECT Scan-Bone NM 05/13/18 00:00 CONCLUSION: 1. Focal increased uptake and localization of tracer activity to the distal phalanx of the second toe suspicious for inflammatory process such as osteomyelitis. This correlates with the recent MRI of the foot. Chest X-Ray 05/16/18 06:00 CONCLUSION: Mild prominence cardiac silhouette otherwise negative for acute process. Physical Exam: Physical Examination GENERAL: awake and alert, not in respiratory distress. SKIN: Cool and dry. No generalized rash, no ecchymoses and no evidence of embolic lesions. HEAD: Atraumatic. Normocephalic. No temporal wasting, or tenderness. EYES: [place] conjunctiva. No petechia or hemorrhage. Pupils equal, round and reactive to light. Extraocular movements full and intact. No scleral icterus. No injection or drainage. EARS, NOSE AND THROAT: Nose without bleeding or purulent nasal discharge. No sinus tenderness. Mucous membranes pink and moist. No oral lesions noted. No exudate. No oral thrush. NECK: Trachea midline. Supple and not tender, no meningeal signs CARDIOVASCULAR: Regular rate and rhythm. No murmurs, rubs or gallops heard RESPIRATORY: Clear to auscultation. Breath sounds equal bilaterally. No rales , wheezing or rhonchi ABDOMEN: Soft, non-tender, nondistended. Bowel sounds present and normoactive. No guarding. No rebound. No organomegaly. EXTREMITIES: No clubbing, cyanosis, or edema. R foot - second toe is less red and swollen and wound with small amount drainage. No redness noted on dorsum of his R foot, no lymphangitis seen. No calf tenderness. Good pulses both feet NEUROLOGICAL: Awake and alert. Cranial nerves grossly intact. Motor grossly within normal limits. PSYCHIATRIC: Seems to have depressed affect, calm and cooperative. LINE: No evidence of infection Assessment and Plan - Plan Impression Cellulitis R second toe with wound, with osteomyelitis at tip - C/S polymicrobial DM Renal insufficiency, ?baseline, possibly due to infection - improving, likely due to infection Possible sepsis due to foot infection Recommendation Continue Azactam Continue Vanco - will dose depending on levels Add Flagyl Once amputation done, will not need long course of IV Abx - likely Levaquin and Flagyl po on D/C Monitor progress
[2018-05-16] MEDS: metroNIDAZOLE 500 MG Tablet PO SCH ×2 (13:22→23:09)
[2018-05-16] MEDS: Vancomycin Inj 1,750 MG in Sodium Chlor 0.9% Inj 500 ML IV.SIG SCH (14:37)
--- NOTE | 2018-05-16 15:16 | P.DCO ---
- Physical Therapy Order: Evaluate and treat, Improve ambulation, Strength and gait training - Home Health Nursing Order: Medical education, CHF education, Medication education-adverse effect, Wound care and dressing changes, Nursing assessment with vital signs - Certification I have seen patient Donovan Springer on 05/16/18. My clinical findings support the need for the requested home health care services because: Deconditioned with increased weakness I certify that my clinical findings support that this patient is homebound because: Unsteady gait/balance
[2018-05-16] MEDS ORDERED: Lidocaine PF 1% Inj 5 ML Syringe INFILTRATN ONE (18:17)
[2018-05-16] MEDS ORDERED: fentaNYL Citrate Inj 250 MCG/5 ML Ampul ONE (19:44)
[2018-05-16] MEDS ORDERED: Lidocaine PF 2% Inj 10 ML Ampul ONE (20:36)
[2018-05-16] MEDS ORDERED: Bupivacaine PF 0.5% Inj 30 ML Vial ONE (20:36)
--- NOTE | 2018-05-16 21:26 | P.BOP ---
- Preoperative Diagnosis (1) Osteomyelitis of toe of right foot - Postoperative Diagnosis (1) Osteomyelitis of toe of right foot Date of procedure: 05/16/18 Procedure: Amputation distal right 2nd toe. Middle and distal phalanges removed in disarticulation at proximal interphalangeal joint level utilizing fishmouth incision. Healthy white shiny cartilage cap noted to distal aspect of proximal phalanx. No purulence noted. Viable tissue with bleeding noted and without necrosis at this level. Surgical cure, as all infected bone removed. Distal toe removed and sent to pathology Culture prior to primary closure with 3-0 nylon. Weightbearing as tolerated Right foot in surgical shoe. Follow up in clinic in 1 week for dressing change. Keep dressing clean, dry, intact until follow up visit. Implants: n/a Anesthesia: MAC, local (10mL 0.5% marcaine plain) Surgeon: Suzy Hess DPM Estimated blood loss (mL): 10 Pathology: other (1. distal right 2nd toe to pathology. 2. culture right 2nd toe.) Condition: stable Disposition: PACU
[2018-05-16] MEDS ORDERED: *morphine SULFATE 4 MG/ML PERIprocedure ONLY ONE (21:39)
--- NOTE | 2018-05-16 22:56 | XR ---
EXAM DATE: 05/16/2018 9:44 PM EDT AGE/SEX: 47 years / Male INDICATIONS: Post op right foot, second digit amputation. CLINICAL DATA: This is the patient's subsequent encounter. Patient reports that signs and symptoms h ave been present for 1 day and indicates a pain score of 3/10. MEDICAL/SURGICAL HISTORY: . Diabetes mellitus type II. Congestive heart failure. None. COMPARISON: . FINDINGS: The patient is status post amputation of the right second digit. The middle and distal phalanx are ab sent. The proximal phalanx remains in place. There are mild calcaneal spurs at the Achilles and plant ar aponeurosis attachment sites. CONCLUSION: Status post amputation of the right second digit. Electronically signed by: Ahsan Page MD 05/16/2018 10:55 PM EDT
[2018-05-17] MEDS: Aztreonam Inj 2 GM in Sodium Chloride 0.9% Inj 100 ML IV.SIG SCH (05:49)
[2018-05-17] MEDS: Sod Chloride 0.9% Inj 1,000 ML IV.CONT SCH ×2 (05:50→17:07)
[2018-05-17] MEDS: metroNIDAZOLE 500 MG Tablet PO SCH ×2 (05:59→14:33)
[2018-05-17] MEDS: amLODIPine 5 MG Tablet PO SCH (08:59)
[2018-05-17] MEDS: Insulin NovoLOG Aspart Correctional Sugar Inj SQ SCH ×3 (09:00→17:07)
[2018-05-17] MEDS: Gabapentin 400 MG Capsule PO SCH (09:00)
[2018-05-17] MEDS: Acetaminophen 325 MG Tablet PO PRN (09:05)
[2018-05-17] MEDS ORDERED: levoFLOXacin 750 MG Tablet PO SCH (12:30)
--- NOTE | 2018-05-17 12:30 | P.PNID ---
Subjective Remarks: Patient is a 47-year-old male, with diabetes, presented to the hospital complaining of pain redness and swelling on his right second toe. Patient stated that he had noticed a callus on his right second toe for the last several months. About 2-3 weeks ago he had part of the callus, and since then he has had some open wound on that second toe. He was doing his own wound care and according to the patient it looks like it might be healing. However on May 08 he noted some purulent drainage coming out of that wound. He was doing his own care for the wound, and the following day when he woke up he noticed that his second toe was red and swollen. It progressively worsened so he presented to the hospital for further evaluation and treatment. He denies any fever chills or sweats. He has not had any respiratory, GI or any urinary complaints. Since admission his temperature has been low-grade. His sed rate is 51. MRI of the foot is showing suggestion of osteomyelitis of the distal phalanx. Infectious disease consultation has been requested to evaluate the patient. Notes reviewed Afebrile Had surgery yesterday Amputation distal and middle phalanx C/S pending, G/S rare WBC, no organism Creatinine improving First C/S Klebsiella, Hemophilus, MSSA and anaerobes Antibiotics: Azactam Vancomycin Flagyl Lines: PIV no evidence of infection Past Medical History: CHF (congestive heart failure) (Acute) Diabetes Peripheral neuropathy Allergies/Adverse Reactions: Allergies penicillin G Allergy (Intermediate, Verified 05/11/18 17:15) Hives Sulfa (Sulfonamide Antibiotics) Allergy (Mild, Verified 05/11/18 17:15) Hives Objective Vital Signs 05/16/18 16:00 05/16/18 21:23 05/16/18 21:30 Temperature 98.0 F 98.3 F Pulse Rate 56 L 88 81 Respiratory Rate 20 16 11 L Blood Pressure 165/80 H 174/85 H 172/85 H Pulse Oximetry 96 05/16/18 21:45 05/17/18 04:00 05/17/18 08:00 Temperature 98.3 F 98.1 F 98.0 F Pulse Rate 74 77 74 Respiratory Rate 11 L 17 18 Blood Pressure 160/87 H 133/66 158/74 H Pulse Oximetry 96 94 L 05/17/18 12:00 Temperature 97.6 F Pulse Rate 72 Respiratory Rate 18 Blood Pressure 165/87 H Pulse Oximetry 98 Intake & Output 05/16/18 05/17/18 05/17/18 18:59 06:59 18:59 Intake Total 1617.5 / 1617.5 1580 / 1580 200 / 200 Output Total Balance 1617.5 / 1617.5 1570 / 1570 200 / 200 Intake: IV 1617.5 / 1617.5 1000 / 1000 200 / 200 NS Inj 1,000 ML @ 100 mls/hr IV 1000 / 1000 1000 / 1000 .CONT .Q10H [facility] Rx#:[id number] Azactam Inj 2 GM In NS Inj 100 100 / 100 100 / 100 ML @ 200 mls/hr IV.SIG Q12H [facility] Rx#:[id number] Vancomycin Inj 1,750 MG In NS 517.5 / 517.5 Inj 500 ML @ 250 mls/hr IV.SIG Q24H [facility] Rx#:[id number] Flagyl 500 MG Inj 100 ML @ 0 100 / 100 mls/hr IV.SIG .STK-MED ONE Rx#: [id number] Oral 0 / 0 480 / 480 Anesthesia Amount 100 / 100 Output: Estimated Blood Loss Other: # Voids 2 2 Date of Last Bowel Movement 05/16/18 05/16/18 21:07 Wound - Toe Gram Stain - Final 05/16/18 21:07 Wound - Toe Wound Culture - Pending 05/16/18 21:07 Wound - Toe Acid Fast Bacilli Smear - Pending 05/16/18 21:07 Wound - Toe Mycobacterial Culture - Pending 05/16/18 21:07 Wound - Toe Fungal Smear - Pending 05/16/18 21:07 Wound - Toe Fungal Culture - Pending 05/11/18 20:20 Abscess - Foot Gram Stain - Final 05/11/18 20:20 Abscess - Foot Wound Culture - Final Klebsiella oxytoca Haemophilus parainfluenzae Mixed Anaerobes 05/12/18 21:57 Wound - Foot Gram Stain - Final 05/12/18 21:57 Wound - Foot Wound Culture - Final Klebsiella oxytoca Staphylococcus aureus Lab - Chemistry Results 05/15/18 05/15/18 05/16/18 16:44 21:01 07:33 Creatinine 1.51 H Estimated GFR 50 L POC Glucose 124 H 227 H 05/16/18 05/16/1805/16/18 08:02 10:38 16:53 Creatinine Estimated GFR POC Glucose 111 H 186 H 106 05/17/18 05/17/18 05/17/18 07:55 10:26 11:15 Creatinine 1.52 H Estimated GFR 49 L POC Glucose 173 H 103 Imaging: ITS Impressions Toe X-Ray 05/11/18 19:14 CONCLUSION: No acute bony abnormality identified. Soft tissue swelling at the second toe. No radiopaque foreign body. Foot MRI 05/11/18 21:31 CONCLUSION: 1. Marrow edema distal phalanx of the second toe, possibly an early osteomyelitis although difficult to confirm marrow enhancement postcontrast. There is some subcutaneous edema in the forefoot. SPECT Scan-Bone NM 05/13/18 00:00 CONCLUSION: 1. Focal increased uptake and localization of tracer activity to the distal phalanx of the second toe suspicious for inflammatory process such as osteomyelitis. This correlates with the recent MRI of the foot. Foot X-Ray 05/16/18 00:00 CONCLUSION: Status post amputation of the right second digit. Chest X-Ray 05/16/18 06:00 CONCLUSION: Mild prominence cardiac silhouette otherwise negative for acute process. Physical Exam: Physical Examination GENERAL: awake and alert, not in respiratory distress. SKIN: Cool and dry. No generalized rash, no ecchymoses and no evidence of embolic lesions. EYES: [place] conjunctiva. No petechia or hemorrhage. Pupils equal, round and reactive to light. Extraocular movements full and intact. No scleral icterus. No injection or drainage. EARS, NOSE AND THROAT: Nose without bleeding or purulent nasal discharge. No sinus tenderness. Mucous membranes pink and moist. No oral lesions noted. No exudate. No oral thrush. NECK: Trachea midline. Supple and not tender, no meningeal signs CARDIOVASCULAR: Regular rate and rhythm. No murmurs, rubs or gallops heard RESPIRATORY: Clear to auscultation. Breath sounds equal bilaterally. No rales , wheezing or rhonchi ABDOMEN: Soft, non-tender, nondistended. Bowel sounds present and normoactive. No guarding. No rebound. No organomegaly. EXTREMITIES: No clubbing, cyanosis, or edema. R foot - second toe is less red and swollen and wound with small amount drainage. No redness noted on dorsum of his R foot, no lymphangitis seen. No calf tenderness. Good pulses both feet NEUROLOGICAL: Grossly non-focal PSYCHIATRIC: cooperative. LINE: No evidence of infection Assessment and Plan - Plan Impression Cellulitis R second toe with wound, with osteomyelitis at tip - C/S polymicrobial - S/P amputation DM Renal insufficiency, ?baseline, possibly due to infection - improving, likely due to infection Possible sepsis due to foot infection Recommendation Change Azactam to Levaquin Continue Vanco - will dose depending on levels Continue Flagyl Will not need long course of IV Abx - likely Levaquin and Flagyl po on D/C Monitor progress
[2018-05-17] MEDS ORDERED: Pharmacy Ordered Lab Info OTHER ONE (13:45)
--- NOTE | 2018-05-17 13:48 | P.PN ---
Physical Exam Vital signs: Vital Signs 05/16/18 16:00 05/16/18 21:23 05/16/18 21:30 Temperature 98.0 F 98.3 F Pulse Rate 56 L 88 81 Respiratory Rate 20 16 11 L Blood Pressure 165/80 H 174/85 H 172/85 H Pulse Oximetry 96 05/16/18 21:45 05/17/18 04:00 05/17/18 08:00 Temperature 98.3 F 98.1 F 98.0 F Pulse Rate 74 77 74 Respiratory Rate 11 L 17 18 Blood Pressure 160/87 H 133/66 158/74 H Pulse Oximetry 96 94 L 05/17/18 12:00 Temperature 97.6 F Pulse Rate 72 Respiratory Rate 18 Blood Pressure 165/87 H Pulse Oximetry 98 Intake & Output 05/16/18 05/17/18 05/17/18 18:59 06:59 18:59 Intake Total 1617.5 / 1617.5 1580 / 1580 200 / 200 Output Total Balance 1617.5 / 1617.5 1570 / 1570 200 / 200 Intake: IV 1617.5 / 1617.5 1000 / 1000 200 / 200 NS Inj 1,000 ML @ 100 mls/hr IV 1000 / 1000 1000 / 1000 .CONT .Q10H [facility] Rx#:[id number] Azactam Inj 2 GM In NS Inj 100 100 / 100 100 / 100 ML @ 200 mls/hr IV.SIG Q12H [facility] Rx#:[id number] Vancomycin Inj 1,750 MG In NS 517.5 / 517.5 Inj 500 ML @ 250 mls/hr IV.SIG Q24H [facility] Rx#:[id number] Flagyl 500 MG Inj 100 ML @ 0 100 / 100 mls/hr IV.SIG .STK-MED ONE Rx#: [id number] Oral 0 / 0 480 / 480 Anesthesia Amount 100 / 100 Output: Estimated Blood Loss Other: # Voids 2 2 Date of Last Bowel Movement 05/16/18 Results - Labs CBC & Chem 7: 05/15/18 06:53 05/17/18 10:26 Laboratory Results - last 24 hr 05/16/18 05/17/18 05/17/18 16:53 07:55 10:26 Creatinine 1.52 H Estimated GFR 49 L POC Glucose 106 173 H 05/17/18 11:15 Creatinine Estimated GFR POC Glucose 103 Microbiology 07/09/18 21:07 Wound - Toe Gram Stain - Final 05/11/18 20:20 Abscess - Foot Gram Stain - Final 05/11/18 20:20 Abscess - Foot Wound Culture - Final Klebsiella oxytoca Haemophilus parainfluenzae Mixed Anaerobes - Imaging Impressions Foot X-Ray 05/16/18 00:00 CONCLUSION: Status post amputation of the right second digit. - Procedures none Assessment and Plan - Assessment (1) Osteomyelitis of toe of right foot Code(s): M86.9 - Osteomyelitis, unspecified Status: Acute - Plan 1. Infected diabetic foot wound with osteomyelitis of right 2nd toe As seen on MRI and bone scan Broad-spectrum antibiotics. Patient with penicillin allergy. Will continue aztreonam and vancomycin. ID has added Flagyl Consult to podiatry. Appreciate assistance, patient now agreeing with surgical intervention today. Per ID may not need long-term antibiotic likely discharged on p.o. Levaquin and Flagyl 2. CKD stage IV. = Creatinine baseline 1.7 in 2016. Creatinine here now trending down. 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 Continue insulin sliding scale. Hold home meds. Not a good candidate for metformin due to chronic kidney disease. 4. Chronic diabetic peripheral neuropathy. Continue gabapentin 800 mg 3 times daily, gabapentin dosing needs to be decreased due to chronic kidney disease. 5. Hypertension. Start Norvasc continue to monitor DVT prophylaxisNo mechanical or pharmaceutical VTE prophylaxis administered due to patient's low risk assessment of VTE. Encouraged ambulation. Discharge Planning: dc after surgery possibly tomorrow
[2018-05-17] MEDS: Vancomycin Inj 1,750 MG in Sodium Chlor 0.9% Inj 500 ML IV.SIG SCH (14:33)
[2018-05-17] MEDS ORDERED: Butalbital/APAP/Caff 50/325/40 MG Tablet PO PRN (15:00)
--- NOTE | 2018-05-17 15:23 | P.DS ---
Date of admission: 05/12/18 01:33 Primary care physician: UNKNOWN Brief History from admission: 47-year-old male with a history of diabetes, diabetic peripheral neuropathy who presents to the ER with 3 week history of right second toe pain and swelling. Patient reports over the past 3 days however pus has been emanating from toe. Patient reports pain is sharp, constant, radiates throughout his whole foot. Otherwise says he is feeling all right. Denies any fevers, chest pain, shortness of breath, nausea, vomiting. He has not taken antibiotics for this yet. Patient denies any history of heart disease. Denies any chest pain with exertion. DS: Diagnosis - Discharge Diagnosis (1) Osteomyelitis of toe of right foot Status: Acute DS: Medications - Discharge Medications Prescriptions: amlodipine [Norvasc] 5 mg PO DAILY #30 tab levofloxacin 750 mg PO Q48H #5 tab metronidazole 500 mg PO Q8HR #30 tab DS: Summary Hospital Course: 1. Infected diabetic foot wound with osteomyelitis of 2nd right toe s/p amputation Broad-spectrum antibiotics aztreonam and vancomycin switched to po Flagyl and Levaquin for another 10 days dw ID F/u podiatry 2 wks f/u path 2. CKD stage IV. Creatinine baseline 1.7 in 2016. Creatinine here now trending down. 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 Continue insulin sliding scale. Resume home meds. Not a good candidate for metformin due to chronic kidney disease. 4. Chronic diabetic peripheral neuropathy. Continue gabapentin 800 mg 2 times daily, gabapentin dosing needs to be decreased due to chronic kidney disease. 5. Hypertension. Ct Norvasc continue to monitor DVT prophylaxisNo mechanical or pharmaceutical VTE prophylaxis administered due to patient's low risk assessment of VTE. Encouraged ambulation. - Time Spent with Patient Total time spent providing and/or coordinating discharge services: Greater than 30 minutes - Quality: VTE Deep Vein Thrombosis/Pulmonary Embolism Present on Admission: No Exam Vital signs: Vital Signs 05/16/18 16:00 05/16/18 21:23 05/16/18 21:30 Temperature 98.0 F 98.3 F Pulse Rate 56 L 88 81 Respiratory Rate 20 16 11 L Blood Pressure 165/80 H 174/85 H 172/85 H Pulse Oximetry 96 05/16/18 21:45 05/17/18 04:00 05/17/18 08:00 Temperature 98.3 F 98.1 F 98.0 F Pulse Rate 74 77 74 Respiratory Rate 11 L 17 18 Blood Pressure 160/87 H 133/66 158/74 H Pulse Oximetry 96 94 L 05/17/18 12:00 Temperature 97.6 F Pulse Rate 72 Respiratory Rate 18 Blood Pressure 165/87 H Pulse Oximetry 98 Intake & Output 05/16/18 05/17/18 05/17/18 18:59 06:59 18:59 Intake Total 1617.5 / 1617.5 1580 / 1580 200 / 200 Output Total Balance 1617.5 / 1617.5 1570 / 1570 200 / 200 Intake: IV 1617.5 / 1617.5 1000 / 1000 200 / 200 NS Inj 1,000 ML @ 100 mls/hr IV 1000 / 1000 1000 / 1000 .CONT .Q10H [facility] Rx#:[id number] Azactam Inj 2 GM In NS Inj 100 100 / 100 100 / 100 ML @ 200 mls/hr IV.SIG Q12H [facility] Rx#:[id number] Vancomycin Inj 1,750 MG In NS 517.5 / 517.5 Inj 500 ML @ 250 mls/hr IV.SIG Q24H [facility] Rx#:[id number] Flagyl 500 MG Inj 100 ML @ 0 100 / 100 mls/hr IV.SIG .STK-MED ONE Rx#: [id number] Oral 0 / 0 480 / 480 Anesthesia Amount 100 / 100 Output: Estimated Blood Loss Other: # Voids 2 2 Date of Last Bowel Movement 05/16/18 Narrative: GENERAL: This is a well-nourished, well-developed patient, in no apparent distress. CARDIOVASCULAR: Regular rate and rhythm without murmurs, gallops, or rubs. RESPIRATORY: Clear to auscultation. Breath sounds equal bilaterally. No wheezes , rales, or rhonchi. GASTROINTESTINAL: Abdomen soft, non-tender, nondistended. Normal active bowel sounds MUSCULOSKELETAL: Extremities without clubbing, cyanosis, or edema. Dry dressing right foot NEURO: Alert & Oriented x4 to person, place, time, situation. Moves all ext x4 Results Procedures completed during hospitalization: s/p amputation of distal 2nd right toe Pending studies at discharge: Pending at discharge 05/16/18 Surgical [PTH] Routine Labs on day of discharge: Labs from last 24 hours 05/17/18 05/17/18 05/17/18 14:10 11:15 10:26 Creatinine 1.52 H Estimated GFR 49 L POC Glucose 103 Vancomycin Trough 10.2 H 05/17/18 05/16/18 07:55 16:53 Creatinine Estimated GFR POC Glucose 173 H 106 Vancomycin Trough Preliminary micro results at discharge 05/16/18 21:07 Wound Culture - Preliminary Wound - Toe No growth in 24 hours - Impressions ITS Impressions Toe X-Ray 05/11/18 19:14 CONCLUSION: No acute bony abnormality identified. Soft tissue swelling at the second toe. No radiopaque foreign body. Foot MRI 05/11/18 21:31 CONCLUSION: 1. Marrow edema distal phalanx of the second toe, possibly an early osteomyelitis although difficult to confirm marrow enhancement postcontrast. There is some subcutaneous edema in the forefoot. SPECT Scan-Bone NM 05/13/18 00:00 CONCLUSION: 1. Focal increased uptake and localization of tracer activity to the distal phalanx of the second toe suspicious for inflammatory process such as osteomyelitis. This correlates with the recent MRI of the foot. Foot X-Ray 05/16/18 00:00 CONCLUSION: Status post amputation of the right second digit. Chest X-Ray 05/16/18 06:00 CONCLUSION: Mild prominence cardiac silhouette otherwise negative for acute process. Discharge Plan - Discharge Disposition Patient Disposition: 01 Discharge Home - Discharge Condition Condition: Stable - Discharge Order Discharge Orders: Discharge Order (Routine); Ordered 05/17/18 Ordered By: Zac Quach - Physicians Team Primary Care Provider: UNKNOWN, Attending Provider: Zac Quach Other Providers: Lakisha Mcconnell DPM ; Angela Burgess MD
--- NOTE | 2018-05-17 17:26 | ECG ---
Date Performed: 05/16/2018 Time Performed: 19:04:03 PTAGE: 47 years EKG: Sinus rhythm NONSPECIFIC T-WAVE ABNORMALITY BORDERLINE ECG PREVIOUS TRACING : 05/15/2018 22.26 Since the previous tracing, no significant change noted DOCTOR: Francis Dailey Interpretating Date/Time 05/17/2018 17:25:54
[2018-05-18] MEDS ORDERED: Vancomycin Inj 2,000 MG in Sodium Chlor 0.9% Inj 500 ML IV.SIG SCH (11:00)
[2018-05-20] MEDS ORDERED: Pharmacy Ordered Lab Info OTHER ONE (10:45)
--- NOTE | 2018-05-20 16:52 | MP ---
cc: Suzy Hess DPM DATE OF OPERATION: 05/16/2018 DATE OF SURGERY: 05/16/2018 INDICATIONS: The patient presented with an ulceration to the distal aspect of the right foot second toe and was noted to have probed to bone to the distal phalanx. He was discussed by Dr. Mcconnell and myself that he would benefit from amputation of the distal aspect of the right second toe. He refused amputation and then decided that, after further conversation, in order to get rid of the infection, he would have to undergo the procedure. He was agreeable to move forward with amputation of the distal aspect right second toe. OPERATIVE PROCEDURE: He was seen in preop holding by myself, nursing staff and Anesthesia where the correct patient, side and site were all confirmed to be correct in the right foot second toe. He was then taken to the surgical suite in supine position. Right foot was prepped and draped in normal sterile fashion, followed by attention directed to the second toe distal aspect where the distal aspect of second toe was disarticulated using a fishmouth incision at the proximal interphalangeal joint level to remove the middle and distal phalanges. A healthy, white shiny cartilage cap was noted to the distal aspect of the proximal phalanx. No purulence was noted at this level. There is noted to be some viable tissue with bleeding noted without necrosis. All infected bone was noted to be removed. The distal aspect of the toe was sent to pathology. Culture was taken prior to primary closure with 3-0 nylon. The patient tolerated procedure and anesthesia well without complications and was taken back to PACU with vital signs stable and vascular status intact to the remainder of the right foot. He will be weightbearing as tolerated to the right foot, in a surgical shoe and follow up in clinic in 1 week for a dressing change and keep the dressing clean, dry and intact until his followup visit. SHORT OPERATIVE NOTE SURGEON: Suzy Hess DPM STUDENT FINANCIAL AID MANAGER: Staff. PREOPERATIVE DIAGNOSIS: Osteomyelitis, right foot second toe. POSTOPERATIVE DIAGNOSIS: Osteomyelitis, right foot second toe. PROCEDURE PERFORMED: Amputation, distal right second toe. PROPHYLAXIS: On IV antibiotics. PATHOLOGY: 1. Distal right second toe to pathology. 2. Culture right second toe. ANESTHESIA: MAC with local consisting of 10 mL of 0.5% Marcaine plain. ESTIMATED BLOOD LOSS: 10 mL. CONDITION: Stable to PACU. COMPLICATIONS: None. DISPOSITION: Weightbearing as tolerated. Right foot in surgical shoe. Followup in clinic in 1 week. KATRIN Dos Santos/INES , 04:37 PM , 04:50 PM
== END 2018-05-17 18:18 | disposition home or self-care (01) ==
LOC: NEPD 15:27 → NEDA 15:27 → N07 05-12 04:18
PROVIDERS: ADMIT Internal Medicine; ATTEND Internal Medicine